=== PATIENT | female | born 1935 | race Caucasian/White ===

== ENCOUNTER → 2017-07-02 | Outpatient (CLI) | payer MEDICARE, BC | LOC: M.RAD 12:25 | DX: M47.896 Other spondylosis, lumbar region (principal); M41.86 Other forms of scoliosis, lumbar region ==

== ENCOUNTER → 2017-09-03 | Outpatient (CLI) | payer MEDICARE, BC | LOC: M.RAD 12:27 | DX: R06.02 Shortness of breath (principal); R07.89 Other chest pain ==

== ENCOUNTER → 2018-03-10 | Outpatient (CLI) | payer MEDICARE, BC | LOC: M.RAD 14:26 | DX: J15.8 Pneumonia due to other specified bacteria (principal); R05 Cough ==

== ENCOUNTER 2018-11-29 17:15 | Inpatient (IN) | payer MEDICARE, BC ==
[~2018-11-29] VITALS: Ht 157.5 cm; Wt 45.7 kg
[2018-11-29 17:21] VITALS: BP 205/78
[2018-11-29] MEDS ORDERED: LEVO-T50 MCG PO (17:37)
[2018-11-29] MEDS ORDERED: LEVO-T75 MCG PO (17:38)
[2018-11-29] MEDS ORDERED: MELOXICAM15 MG PO (17:38)
[2018-11-29 17:39] LABS: ABSOLUTE BASOPHILS 0.1 thou/uL (0.0-0.2); ABSOLUTE LYMPHOCYTES 0.5 thou/uL (0.8-5.3); ABSOLUTE MONOCYTES 0.2 thou/uL (0.0-1.2); ABSOLUTE NEUTROPHILS 3.6 thou/uL (1.6-8.1); BASOPHILS 1.4 %; EOSINOPHILS 0.1 %; HEMATOCRIT 33.9 % (37.0-47.0); HEMOGLOBIN 11.7 gm/dL (12.0-15.0); LYMPHOCYTES 10.3 %; MCH 32.6 pg (26.0-34.0); MCHC 34.5 g/dL (28.0-37.0); MCV 94.3 fL (80.0-100.0); MONOCYTES 5.3 %; MPV 7.4 fl. (7.2-11.1); NUCLEATED RBCS 0 /100WBC; PLATELET COUNT* 186 thou/uL (150-400); POLYS 82.9 %; RDW-CV 12.5 % (10.5-14.5); WBC 4.4 thou/uL (4.0-11.0)
[2018-11-29] MEDS ORDERED: LISINOPRIL20 MG PO (17:39)
[2018-11-29] MEDS ORDERED: VITAMIN D-32000 UNIT PO (17:40)
[2018-11-29] MEDS ORDERED: ZANTAC 150MG T150 M1 PO (17:40)
[2018-11-29] MEDS ORDERED: SLOW FE142 MG PO (17:41)
[2018-11-29] MEDS ORDERED: CLOPIDOGREL75 MG PO (17:42)
[2018-11-29] MEDS ORDERED: NEURONTIN 300M300 M2 PO (17:42)
[2018-11-29] MEDS ORDERED: LOVASTATIN 20 M20 MG PO (17:43)
[2018-11-29] MEDS ORDERED: NEURONTIN 400M400 M2 PO (17:43)
[2018-11-29 17:47] LABS: CALCIUM 10.5 mg/dL (8.5-10.1); CREATININE 1.2 mg/dL (0.6-1.3); POTASSIUM 4.8 mmol/L (3.5-5.1)
[2018-11-29 17:48] LABS: APTT 24.9 Seconds (25.0-31.3)
[2018-11-29 17:58] LABS: ALBUMIN 4.3 g/dL (3.4-5.0); TOTAL BILIRUBIN 0.3 mg/dL (<0.1-1.0); TOTAL PROTEIN 7.7 g/dL (6.4-8.2)
[2018-11-29 18:56] LABS: URINE BILIRUBIN NEGATIVE (Negative); URINE BLOOD TRACE (Negative); URINE CLARITY CLEAR; URINE COLOR STRAW; URINE GLUCOSE-RANDOM NEGATIVE (Negative); URINE KETONES NEGATIVE (Negative); URINE LEUKOCYTES-REFLEX NEGATIVE (Negative); URINE NITRITE-REFLEX NEGATIVE (Negative); URINE PROTEIN 1+ (Negative); URINE UROBILINOGEN 0.2 E.U./dl (0.2-1.0)
[2018-11-29 19:45] VITALS: BP 161/55
[2018-11-29 20:15] VITALS: BP 133/53
[2018-11-30] VITALS (7 sets, daily range): BP systolic 138–187; BP diastolic 45–60
[2018-12-01] VITALS: BP 152/46
[2018-12-01 04:00] VITALS: BP 152/50
[2018-12-01 08:00] VITALS: BP 166/46
--- NOTE | 2018-12-01 11:06 | EKG ---
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: [place] : 1935 Requested By: Roel Rodriguez Order Number: [id number] MD: Justin Owens Measurements Intervals [place] Rate: 74 P: 86 CT: 160 QRS: 8 QRSD: 94 T: 36 QT: 365 QTc: 405 Interpretive Statements Sinus rhythm Probable left atrial enlargement Borderline low voltage, extremity leads Consider anterior infarct No previous ECG available for comparison Electronically Signed On 12-01-2018 11:06:13 CDT by Justin Owens [email or web address] <ELECTRONICALLY SIGNED> By: Justin Owens MD, [facility] 12/01/18 1106 1724 172 Justin Owens MD, [facility] /EPI
[2018-12-01 11:16] LABS: ANION GAP 6 mmol/L (7-16); BUN 19 mg/dL (7-18); CALCIUM 8.8 mg/dL (8.5-10.1); CHLORIDE 104 mmol/L (98-107); CHOLESTEROL 164 mg/dL (<200); CO2 26 mmol/L (21-32); CREATININE 1.1 mg/dL (0.6-1.3); GLUCOSE 127 mg/dL (70-99); HDL CHOLESTEROL 69 mg/dL (>40); LDL CHOLESTEROL 67 mg/dL (<100); MAGNESIUM 1.7 mg/dL (1.8-2.4); SERUM ASSESSMENT Clear; SODIUM 136 mmol/L (136-145); TC:HDL 2.4 Ratio (Not establshd); TRIGLYCERIDE 141 mg/dL (<150); VLDL 28 mg/dL (<40)
[2018-12-01 11:30] VITALS: BP 156/45
--- NOTE | 2018-12-01 14:19 | 2DMMODE ---
[place] [address] 2 D/M-MODE ECHOCARDIOGRAM Name: JALEEL EMERSON Room: [address] IN [facility]#: [id number] Admission: 11/29/18 Attend Phys: Ed Morales Discharge: Date of : 35 Date of Service: 12/01/18 1419 Report #: [id number] THIS REPORT FOR: //name// APPROVED REPORT Study performed: 12/01/2018 11:21:52 EXAM: Comprehensive 2D, Doppler, and color-flow Echocardiogram Patient Location: In-Patient Room #: [facility] BSA: 1.47 HR: 78 bpm BP: 166/46 mmHg Other Information Study Quality: Good Indications R/O Thrombus source 2D Dimensions IVSd: 9.10 (7-11mm) LVOT Diam: 19.42 (18-24mm) LVDd: 36.72 mm PWd: 9.89 (7-11mm) Ascending Ao: 29.13 (22-36mm) LVDs: 22.61 (25-40mm) Aortic Root: 19.93 mm Volumes Left Atrial Volume (Systole) LA ESV Index: 19.60 mL/m2 Aortic Valve AoV Peak Vipul.: 2.48 m/s AO Peak Gr.: 24.50 mmHg LVOT Max P.57 mmHg AO Mean Gr.: 14.00 mmHg LVOT Mean P.52 mmHg LVOT Max V: 1.46 m/s AO V2 VTI: 54.47 cm LVOT Mean V: 0.99 m/s VIANCA (VTI): 1.83 cm2 LVOT V1 VTI: 33.71 cm AI Butts: 3.19 m/s2 AI PHT: 400.17 ms Mitral Valve E/A Ratio: 1.14 MV Decel. Time: 221.70 [place] [address] 2 D/M-MODE ECHOCARDIOGRAM Name: KIJALEEL Room: [address] IN ..#: [id number] Admission: 11/29/18 Attend Phys: Ed Morales Discharge: Date of : 35 Date of Service: 12/01/18 1419 Report #: [id number] MV E Max Vipul.: 0.91 m/s MV PHT: 64.29 ms MVA (PHT): 3.42 cm2 TDI E/Lateral E': 13.00 E/Medial E': 13.00 Medial E' Vipul.: 0.07 m/s Lateral E' Vipul.: 0.07 m/s Pulmonary Valve PV Peak Vipul.: 0.77 m/s PV Peak Gr.: 2.39 mmHg Tricuspid Valve RAP Estimate: 5.00 mmHg TR Peak Gr.: 26.02 mmHg RVSP: 31.02 mmHg PA Pressure: 31.02 mmHg Left Ventricle The left ventricle is normal size. There is normal LV segmental wall motion. There is normal left ventricular wall thickness. Left ventricular systolic function is normal. The left ventricular ejection fraction is within the normal range. LVEF is 60-65%. The left ventricular diastolic function is normal. Right Ventricle The right ventricle is normal size. The right ventricular systolic function is normal. Atria The left atrium size is normal. The right atrium size is normal. Aortic Valve Aortic valve is mildly calcified. Mild aortic regurgitation. Mild aortic stenosis. Mitral Valve The mitral valve is normal in structure. Mild mitral regurgitation. No evidence of mitral valve stenosis. Tricuspid Valve The tricuspid valve is normal in structure. Mild tricuspid regurgitation estimated pa pressure 30 mm Hg Pulmonic Valve Pulmonic valve is not well visualized. There is no [place] [address] 2 D/M-MODE ECHOCARDIOGRAM Name: JALEEL EMERSON Room: [address] IN [facility]#: [id number] Admission: 11/29/18 Attend Phys: Ed Morales Discharge: Date of : 35 Date of Service: 12/01/18 1419 Report #: [id number] regurgitation. Great Vessels The aortic root is normal in size. IVC is normal in size and collapses >50% with inspiration. Pericardium Trace pericardial effusion. <Conclusion> LVEF is 60-65%. Mild aortic stenosis. Mild aortic regurgitation. Mild mitral regurgitation. <ELECTRONICALLY SIGNED> By: Justin Owens MD, FACC 12/01/181418 18 18 Justin Owens MD, FACC /INF
[2018-12-01 16:17] VITALS: BP 152/50
[2018-12-01 20:00] VITALS: BP 182/61
[2018-12-01 23:08] LABS: GLYCOHEMOGLOBIN (HGB A1C) 5.5 % (4.8-5.6)
[2018-12-02] VITALS (9 sets, daily range): BP systolic 130–227; BP diastolic 56–84
[2018-12-03] VITALS (8 sets, daily range): BP systolic 154–227; BP diastolic 58–77
[2018-12-03 05:45] LABS: CALCIUM 9.3 mg/dL (8.5-10.1); CREATININE 1.2 mg/dL (0.6-1.3); MAGNESIUM 2.1 mg/dL (1.8-2.4); POTASSIUM 4.4 mmol/L (3.5-5.1)
[2018-12-04 09:41] VITALS: BP 187/44
[2018-12-04 15:53] VITALS: BP 193/65
[2018-12-05] VITALS: BP 173/59
[2018-12-05 08:56] VITALS: BP 184/64
[2018-12-05] MEDS ORDERED: HYDROCODON-ACE1 EAC7 PO (09:31)
[2018-12-05] MEDS ORDERED: ANECREAM5 GM TOP (09:31)
[2018-12-05] MEDS ORDERED: VALTREX 500 MG500 M1 PO (09:31)
[2018-12-05] MEDS ORDERED: NEURONTIN600 MG PO (09:31)
[2018-12-05] MEDS ORDERED: HYDROCHLOROTHIA25 M1 PO (09:31)
[2018-12-05] MEDS ORDERED: NORVASC5 MG PO (09:31)
[2018-12-05] MEDS ORDERED: CATAPRES0.2 MG PO (09:31)
[2018-12-05 13:05] VITALS: BP 129/87
[2018-12-05 13:10] VITALS: BP 123/52
[2018-12-05 13:15] VITALS: BP 119/53
[2018-12-05 20:00] VITALS: BP 144/51
[2018-12-06 07:45] VITALS: BP 165/53
[2018-12-06 12:25] VITALS: BP 165/53
[2018-12-06 13:28] VITALS: BP 165/53
--- NOTE | 2018-12-09 07:33 | CON ---
[address] [address] CONSULTATION Name: JALEEL EMERSON Room: [address] IN M.R.#: [id number] Admission: 11/29/18 Attend Phys: Meena Swartz Discharge: 12/06/18 Date of : 35 Report #: [id number] THIS REPORT FOR: //name// CC: Erick Morales DATE OF SERVICE: 12/04/2018 INFECTIOUS DISEASE CONSULTATION ATTENDING PHYSICIAN: Dr. Horn. REASON FOR EVALUATION: Varicella zoster scalp distribution on the right. HISTORY OF PRESENT ILLNESS: Chart reviewed, patient examined. This is an 83-year-old woman with history of hypertension, who presented to the Emergency Room with complaints of severe right-sided headaches, seem to radiate down her neck and to shoulder, also had nausea and emesis. She was evaluated including MRI showed no acute intracranial processes. Subsequently, developed a zoster form type eruption, has been quite painful. She states she has macular degeneration, there are no apparent visual changes compared to her baseline. Denies any stiff neck. No fevers have been recorded, was empirically placed on 3 times a day Valtrex. Denies any pulmonary related complaints. ALLERGIES: LISTED TO PENICILLINS CAUSES URTICARIA. CURRENT MEDICATIONS: Include famotidine, hydrocodone, pantoprazole, amlodipine, hydrochlorothiazide, lisinopril, gabapentin, labetalol, valacyclovir 1 g p.o. t.i.d., levothyroxine, atorvastatin, promethazine, ondansetron as needed, p.r.n. analgesics. PAST MEDICAL HISTORY: History of hypertension, subacute thalamic stroke, hypothyroidism. SOCIAL HISTORY: Nonsmoker. No ethanol, no illicit drug use. FAMILY HISTORY: Noncontributory. REVIEW OF SYSTEMS: Otherwise, unremarkable 10-point review of systems with exception noted above. PHYSICAL EXAMINATION: GENERAL: She is alert. She is in vfln-gt-agiflhjm distress. She appears somewhat chronically ill, perhaps mildly undernourished. She is generally lucid. VITAL SIGNS: Temperature 97.7, pulse 60, respirations 18, [place] [address] CONSULTATION Name: JALEEL EMERSON Room: [address]#: [id number] Admission: 11/29/18 Attend Phys: Meena Swartz Discharge: 12/06/18 Date of : 35 Report #: [id number] 187/44. HEENT: She has got some residual superficial ulceration involving the dermatome involving the right side of the scalp, parietal site, appreciate true vesicles at this point, it is somewhat palpably tender. Otherwise normocephalic. Extraocular muscles intact. There is no periorbital inflammation. NECK: Supple. LUNGS: Diminished, otherwise clear breath sounds. HEART: Regular. I do not appreciate any murmur. ABDOMEN: Soft, nontender, nondistended. EXTREMITIES: No cyanosis. GENITOURINARY AND RECTAL: Deferred. LABORATORY DATA: MRI of the head and cervical spine, latter shows multilevel neural foraminal stenosis narrowing at the C3-C4, no acute processes. MRI with an MRA was otherwise unremarkable as well. Electrolytes: Sodium 136, potassium 4.0, chloride 104, bicarbonate 26, anion gap of 6, BUN and creatinine 19 and 1.1. ASSESSMENT AND PLAN: Varicella zoster, at this point seemingly the resolution phase. I think it is reasonable to continue the current approach. I do not see the necessity of a lumbar puncture at this point, does not seem to be direct eye involvement either. Continue symptomatic treatment. It is difficult to ascertain whether she will have some post-herpetic neuralgia, as resolved, may be a candidate for the Shingrix shot. She notes she has had the earlier varicella zoster vaccination, monitor expectantly. We will be available as needed. <ELECTRONICALLY SIGNED> By: Nicko Greer MD 12/09/18 0733 1329 1405Jojaic Greer MD /nt
== END 2018-12-06 13:29 | DRG 74 ==
LOC: M.ERS 17:15 → M.2W 18:24 → M.TBA-ER 18:24 → M.2W 20:00 → M.3W 12-03 15:15
PROVIDERS: Family Medicine; Internal Medicine; ADMIT Internal Medicine
DX: B02.21 Postherpetic geniculate ganglionitis (principal); B01.9 Varicella without complication; E87.1 Hypo-osmolality and hyponatremia; I10 Essential (primary) hypertension; E03.9 Hypothyroidism, unspecified; G90.8 Other disorders of autonomic nervous system; K21.9 Gastro-esophageal reflux disease without esophagitis; G62.9 Polyneuropathy, unspecified; E86.9 Volume depletion, unspecified; Z88.0 Allergy status to penicillin; Z88.8 Allergy status to other drugs, medicaments and biological substances; Z86.73 Personal history of transient ischemic attack (TIA), and cerebral infarction without residual deficits; Z79.899 Other long term (current) drug therapy; Z90.49 Acquired absence of other specified parts of digestive tract; Z98.49 Cataract extraction status, unspecified eye; Z83.3 Family history of diabetes mellitus; Z82.49 Family history of ischemic heart disease and other diseases of the circulatory system

== ENCOUNTER 2019-01-25 15:21 | Inpatient (IN) | payer MEDICARE, BC ==
[~2019-01-25] VITALS: Ht 160 cm; Wt 44.5 kg
--- NOTE | ~2019-01-25 | PROC ---
[address] [address] PROCEDURE REPORT Name: JALEEL EMERSON Room: [address] IN M.R.#: [id number] Admission: 01/25/19 Attend Phys: Justine denise [place] Discharge: Date of : 35 Report #: [id number] THIS REPORT FOR: //name// For GI report, please see the Provation report in Perceptive 7 content. By: 0640Sunil Crowder MD /JOÃO
[~2019-01-25 15:21] MED LIST: ANECREAM5 GM TOP; CATAPRES0.2 MG PO; CLOPIDOGREL75 MG PO; HYDROCHLOROTHIA25 M1 PO; HYDROCODON-ACE1 EAC7 PO; LEVO-T50 MCG PO; LEVO-T75 MCG PO; LISINOPRIL20 MG PO; LOVASTATIN 20 M20 MG PO; MELOXICAM15 MG PO; NEURONTIN 300M300 M2 PO; NEURONTIN 400M400 M2 PO; NEURONTIN600 MG PO; NORVASC5 MG PO; SLOW FE142 MG PO; VALTREX 500 MG500 M1 PO; VITAMIN D-40010 MCG PO; ZANTAC 150MG T150 M1 PO
[2019-01-25 15:37] VITALS: BP 163/52
[2019-01-25 16:05] LABS: ABSOLUTE EOSINOPHILS 0.1 thou/uL (0.0-0.7); ABSOLUTE MONOCYTES 0.5 thou/uL (0.0-1.2); ABSOLUTE NEUTROPHILS 2.6 thou/uL (1.6-8.1); BASOPHILS 1.1 %; EOSINOPHILS 2.3 %; HEMATOCRIT 36.3 % (37.0-47.0); HEMOGLOBIN 12.6 gm/dL (12.0-15.0); LYMPHOCYTES 23.6 %; MCH 33.4 pg (26.0-34.0); MCHC 34.7 g/dL (28.0-37.0); MCV 96.2 fL (80.0-100.0); MONOCYTES 10.9 %; MPV 7.9 fl. (7.2-11.1); NUCLEATED RBCS 0 /100WBC; PLATELET COUNT* 238 thou/uL (150-400); POLYS 62.1 %; RBC 3.78 mil/uL (4.20-5.00); WBC 4.3 thou/uL (4.0-11.0)
[2019-01-25 16:16] LABS: CALCIUM 9.3 mg/dL (8.5-10.1); CREATININE 1.7 mg/dL (0.6-1.3); POTASSIUM 5.5 mmol/L (3.5-5.1)
[2019-01-25 16:20] LABS: ALBUMIN 3.8 g/dL (3.4-5.0); TOTAL BILIRUBIN 0.2 mg/dL (<0.1-1.0); TOTAL PROTEIN 7.3 g/dL (6.4-8.2)
[2019-01-25 17:07] LABS: URINE BILIRUBIN NEGATIVE (Negative); URINE BLOOD NEGATIVE (Negative); URINE CLARITY CLEAR; URINE COLOR YELLOW; URINE GLUCOSE-RANDOM NEGATIVE (Negative); URINE KETONES NEGATIVE (Negative); URINE LEUKOCYTES-REFLEX NEGATIVE (Negative); URINE NITRITE-REFLEX NEGATIVE (Negative); URINE PROTEIN NEGATIVE (Negative); URINE UROBILINOGEN 0.2 E.U./dl (0.2-1.0)
[2019-01-25 17:57] VITALS: BP 157/69
[2019-01-25 18:26] VITALS: BP 157/56
[2019-01-25 20:00] VITALS: BP 141/40
[2019-01-26 09:24] VITALS: BP 132/74
[2019-01-26 09:50] LABS: ABSOLUTE EOSINOPHILS 0.1 thou/uL (0.0-0.7); ABSOLUTE LYMPHOCYTES 1.1 thou/uL (0.8-5.3); ABSOLUTE MONOCYTES 0.4 thou/uL (0.0-1.2); ABSOLUTE NEUTROPHILS 2.3 thou/uL (1.6-8.1); BASOPHILS 1.2 %; EOSINOPHILS 3.5 %; HEMATOCRIT 33.1 % (37.0-47.0); HEMOGLOBIN 11.3 gm/dL (12.0-15.0); LYMPHOCYTES 27.5 %; MCH 33.4 pg (26.0-34.0); MCHC 34.1 g/dL (28.0-37.0); MCV 97.9 fL (80.0-100.0); MONOCYTES 10.7 %; MPV 7.6 fl. (7.2-11.1); NUCLEATED RBCS 0 /100WBC; PLATELET COUNT* 205 thou/uL (150-400); POLYS 57.1 %; RBC 3.38 mil/uL (4.20-5.00); RDW-CV 15.1 % (10.5-14.5)
[2019-01-26 09:55] LABS: CALCIUM 8.5 mg/dL (8.5-10.1); CREATININE 1.2 mg/dL (0.6-1.3); POTASSIUM 5.1 mmol/L (3.5-5.1)
[2019-01-26 11:55] VITALS: BP 132/74
--- NOTE | 2019-01-26 14:28 | EKG ---
[place] [address] ELECTROCARDIOGRAM REPORT Name: JALEEL EMERSON Room: [address] ADM IN .R.#: [id number] Admission: 01/25/19 Attend Phys: Justine Beauchamp Discharge: Date of : 35 Report #: [id number] THIS REPORT FOR: //name// [facility] ED Test Date: 2019-01-25 Test Time: 16:17:23 Pat Name: JALEEL EMERSON Department: Room: [facility] Gender: F Principal Engineer: : 1935 Requested By: Roel Rodriguez Order Number: [id number] MD: Justin Owens Measurements Intervals [place] Rate: 66 P: 85 MO: 167 QRS: 11 QRSD: 101 T: 36 QT: 393 QTc: 412 Interpretive Statements Sinus rhythm poor r wave progression Probable left atrial enlargement Borderline low voltage, extremity leads Compared to ECG 11/29/2018 17:24:08 no change Electronically Signed On 01-26-2019 14:27:54 SUPERVISING EDITOR TRAILER by Justin Owens [email or web address] <ELECTRONICALLY SIGNED> By: Justin Owens MD, [facility] 01/26/19 1427 1617 1617 Justin Owens MD, [facility] /EPI
[2019-01-26 19:45] VITALS: BP 135/36
[2019-01-26 21:35] VITALS: BP 135/36
[2019-01-27 04:52] LABS: CALCIUM 8.3 mg/dL (8.5-10.1); CREATININE 1.1 mg/dL (0.6-1.3); POTASSIUM 5.1 mmol/L (3.5-5.1)
[2019-01-27 05:07] LABS: HEMATOCRIT 32.5 % (37.0-47.0); MCH 33.2 pg (26.0-34.0); MCV 97.7 fL (80.0-100.0); MPV 8.4 fl. (7.2-11.1); RBC 3.33 mil/uL (4.20-5.00); RDW-CV 15.1 % (10.5-14.5)
[2019-01-27 07:11] VITALS: BP 162/40
[2019-01-27 15:57] VITALS: BP 142/45
[2019-01-27 22:00] VITALS: BP 134/27
[2019-01-28 07:40] VITALS: BP 151/43
[2019-01-28 09:18] LABS: ABSOLUTE EOSINOPHILS 0.2 thou/uL (0.0-0.7); ABSOLUTE LYMPHOCYTES 1.1 thou/uL (0.8-5.3); ABSOLUTE MONOCYTES 0.4 thou/uL (0.0-1.2); ABSOLUTE NEUTROPHILS 4.2 thou/uL (1.6-8.1); BASOPHILS 0.5 %; EOSINOPHILS 3.5 %; HEMATOCRIT 39.3 % (37.0-47.0); LYMPHOCYTES 19.1 %; MCH 32.8 pg (26.0-34.0); MCV 96.4 fL (80.0-100.0); MONOCYTES 6.7 %; MPV 7.9 fl. (7.2-11.1); NUCLEATED RBCS 0 /100WBC; PLATELET COUNT* 248 thou/uL (150-400); POLYS 70.2 %; RBC 4.08 mil/uL (4.20-5.00)
[2019-01-28 09:19] LABS: CALCIUM 9.1 mg/dL (8.5-10.1); POTASSIUM 4.7 mmol/L (3.5-5.1)
[2019-01-28 09:21] LABS: HEMOGLOBIN 13.4 gm/dL (12.0-15.0)
[2019-01-28 17:11] VITALS: BP 131/33
[2019-01-28 19:50] VITALS: BP 134/47
[2019-01-29] VITALS (7 sets, daily range): BP systolic 115–144; BP diastolic 36–82
[2019-01-29 04:46] LABS: HEMATOCRIT 32.1 % (37.0-47.0); MCH 32.7 pg (26.0-34.0); MCHC 33.7 g/dL (28.0-37.0); RBC 3.31 mil/uL (4.20-5.00); RDW-CV 15.1 % (10.5-14.5)
[2019-01-29 04:47] LABS: HEMOGLOBIN 10.8 gm/dL (12.0-15.0)
[2019-01-29 05:07] LABS: CALCIUM 8.6 mg/dL (8.5-10.1); MAGNESIUM 1.9 mg/dL (1.8-2.4); POTASSIUM 4.5 mmol/L (3.5-5.1); TOTAL BILIRUBIN 0.2 mg/dL (<0.1-1.0); TOTAL PROTEIN 5.7 g/dL (6.4-8.2)
[2019-01-30 05:13] LABS: HEMATOCRIT 31.2 % (37.0-47.0); HEMOGLOBIN 10.6 gm/dL (12.0-15.0); MCV 96.8 fL (80.0-100.0); MPV 8.1 fl. (7.2-11.1); RBC 3.22 mil/uL (4.20-5.00); WBC 4.2 thou/uL (4.0-11.0)
[2019-01-30 05:24] LABS: ALBUMIN 2.8 g/dL (3.4-5.0); CALCIUM 8.7 mg/dL (8.5-10.1); CREATININE 0.9 mg/dL (0.6-1.3); MAGNESIUM 1.6 mg/dL (1.8-2.4); POTASSIUM 4.6 mmol/L (3.5-5.1); TOTAL BILIRUBIN 0.2 mg/dL (<0.1-1.0); TOTAL PROTEIN 5.4 g/dL (6.4-8.2)
[2019-01-30 08:00] VITALS: BP 160/49
[2019-01-30 16:00] VITALS: BP 140/43
[2019-01-30 20:00] VITALS: BP 151/85
[2019-01-31 10:00] VITALS: BP 147/46
[2019-01-31 15:24] VITALS: BP 128/48
[2019-01-31 21:00] VITALS: BP 131/49
[2019-02-01 04:29] LABS: HEMATOCRIT 31.1 % (37.0-47.0); HEMOGLOBIN 10.5 gm/dL (12.0-15.0); MCH 32.8 pg (26.0-34.0); MCHC 33.8 g/dL (28.0-37.0); MCV 97.1 fL (80.0-100.0); MPV 7.9 fl. (7.2-11.1); RBC 3.21 mil/uL (4.20-5.00); RDW-CV 15.2 % (10.5-14.5); WBC 4.8 thou/uL (4.0-11.0)
[2019-02-01 04:49] LABS: CALCIUM 8.9 mg/dL (8.5-10.1); CREATININE 0.9 mg/dL (0.6-1.3); MAGNESIUM 1.5 mg/dL (1.8-2.4); POTASSIUM 3.9 mmol/L (3.5-5.1); TOTAL BILIRUBIN 0.3 mg/dL (<0.1-1.0); TOTAL PROTEIN 5.6 g/dL (6.4-8.2)
[2019-02-01] MEDS ORDERED: NEURONTIN300 MG PO (06:46)
[2019-02-01 08:30] VITALS: BP 159/46
[2019-02-01 16:00] VITALS: BP 150/50
[2019-02-01 21:00] VITALS: BP 141/38
[2019-02-02 03:51] LABS: HEMATOCRIT 28.8 % (37.0-47.0); HEMOGLOBIN 9.8 gm/dL (12.0-15.0); MCH 32.7 pg (26.0-34.0); MCV 96.1 fL (80.0-100.0); MPV 7.5 fl. (7.2-11.1); RDW-CV 14.8 % (10.5-14.5); WBC 6.7 thou/uL (4.0-11.0)
[2019-02-02 04:21] LABS: ALBUMIN 2.8 g/dL (3.4-5.0); CALCIUM 8.8 mg/dL (8.5-10.1); CREATININE 0.9 mg/dL (0.6-1.3); MAGNESIUM 1.8 mg/dL (1.8-2.4); POTASSIUM 3.8 mmol/L (3.5-5.1); TOTAL BILIRUBIN 0.1 mg/dL (<0.1-1.0); TOTAL PROTEIN 5.3 g/dL (6.4-8.2)
[2019-02-02 08:00] VITALS: BP 164/50
[2019-02-02 16:00] VITALS: BP 178/49
[2019-02-03] VITALS: BP 163/76
[2019-02-03 04:06] LABS: HEMATOCRIT 28.3 % (37.0-47.0); MCH 33.7 pg (26.0-34.0); MCHC 35.2 g/dL (28.0-37.0); MCV 95.8 fL (80.0-100.0); MPV 7.3 fl. (7.2-11.1); RBC 2.95 mil/uL (4.20-5.00); RDW-CV 14.6 % (10.5-14.5); WBC 4.7 thou/uL (4.0-11.0)
[2019-02-03 04:35] LABS: ALBUMIN 2.8 g/dL (3.4-5.0); CALCIUM 8.8 mg/dL (8.5-10.1); CREATININE 0.8 mg/dL (0.6-1.3); MAGNESIUM 1.7 mg/dL (1.8-2.4); POTASSIUM 3.6 mmol/L (3.5-5.1); TOTAL BILIRUBIN 0.2 mg/dL (<0.1-1.0); TOTAL PROTEIN 4.9 g/dL (6.4-8.2)
[2019-02-03 08:00] VITALS: BP 151/51
[2019-02-03 16:00] VITALS: BP 151/59
[2019-02-03 21:39] VITALS: BP 148/39
[2019-02-04 04:44] LABS: CALCIUM 8.4 mg/dL (8.5-10.1); CREATININE 0.8 mg/dL (0.6-1.3); MAGNESIUM 1.7 mg/dL (1.8-2.4); POTASSIUM 3.6 mmol/L (3.5-5.1)
[2019-02-04 08:00] VITALS: BP 163/67
[2019-02-04 10:00] VITALS: BP 163/67
[2019-02-04 13:30] VITALS: BP 156/76
[2019-02-04 17:17] VITALS: BP 132/74
[2019-02-04 17:32] VITALS: BP 146/48
[2019-02-04 20:05] VITALS: BP 146/52
[2019-02-05 05:05] LABS: HEMATOCRIT 28.1 % (37.0-47.0); HEMOGLOBIN 9.8 gm/dL (12.0-15.0); MCH 33.7 pg (26.0-34.0); MCV 96.3 fL (80.0-100.0); RBC 2.92 mil/uL (4.20-5.00); WBC 5.2 thou/uL (4.0-11.0)
[2019-02-05 05:17] LABS: CALCIUM 8.8 mg/dL (8.5-10.1); CREATININE 0.8 mg/dL (0.6-1.3); MAGNESIUM 1.6 mg/dL (1.8-2.4); POTASSIUM 3.9 mmol/L (3.5-5.1)
[2019-02-05 08:16] VITALS: BP 178/67
[2019-02-05 10:55] VITALS: BP 141/56
[2019-02-05] MEDS ORDERED: PRESERVISION A1 EAC2 PO (11:05)
[2019-02-05] MEDS ORDERED: NEURONTIN 400M400 M2 PO (11:21)
[2019-02-05] MEDS ORDERED: LEVO-T50 MCG PO (11:24)
[2019-02-05] MEDS ORDERED: TYLENOL EXTRA500 MG PO (11:29)
[2019-02-05 14:05] VITALS: BP 130/58
--- NOTE | 2019-02-05 14:27 | CON ---
[address] [address] CONSULTATION Name: KIJALEEL Elvira Room: [address] IN M.R.#: [id number] Admission: 01/25/19 Attend Phys: Justine Beauchamp Discharge: Date of : 35 Report #: [id number] THIS REPORT FOR: //name// CC: Erick Hawkins DATE OF SERVICE: 01/31/2019 REASONS FOR CONSULTATION: Nausea, vomiting, and diarrhea. REQUESTING PHYSICIAN: Justine Hawkins MD HISTORY OF PRESENT ILLNESS: This is an 83-year-old female, who resides in a group home community. The patient reports that she started having diarrhea several days ago, which was associated with symptoms of nausea, vomiting, and abdominal cramping. She reports that several of her "residents, they had similar symptoms." She was brought to hospital and was admitted. Since admission, her hemoglobin has dropped from 12 to 10. There is no report of gastrointestinal blood loss. She was also found to have Clostridium difficile for which she is on oral vancomycin. She reports that her nausea has responded to antiemetics and she feels no more nausea but continues to have diarrhea. Today, already she had 3 loose stools. PAST MEDICAL/SURGICAL HISTORY: Significant for history of cerebrovascular accident, hypothyroidism, hypertension, gallbladder disease, status post cholecystectomy, cataract surgery, gastroesophageal reflux disease, neuropathy, right hip fracture, status post repair, laminectomy, and open reduction and internal fixation of left wrist. ALLERGIES: THE PATIENT REPORTS THAT SHE WAS ALLERGIC TO PENICILLIN A CHILD, but does not believe that she has it anymore. MEDICATIONS: Please refer to MAR. SOCIAL HISTORY: The patient lives in group home community. She denies tobacco or alcohol use. She has had history of thalamic cerebrovascular accident. FAMILY HISTORY: Noncontributory. PHYSICAL EXAMINATION: VITAL SIGNS: Blood pressure of 147/46, respirations 20, pulse 63, temperature 98.2. LUNGS: Clear. CARDIOVASCULAR: Regular. ABDOMEN: Soft, nontender, nondistended. [place] [address] CONSULTATION Name: JALEEL EMERSON Room: [address] IN [facility]#: [id number] Admission: 01/25/19 Attend Phys: Justine Beauchamp Discharge: Date of : 35 Report #: [id number] NEUROLOGIC: The patient is alert and oriented x3. LABORATORY DATA: Sodium of 139, potassium 4.6, BUN is 9, creatinine 0.9, glucose 81; liver function tests are all within normal limits; magnesium is low at 1.6, calcium 8.7, lipase is 206, total bilirubin is 0.1; WBC is 4.2, hemoglobin is 10.6 with MCV of 96.8, platelet is 183. As mentioned above, the patient has Clostridium difficile. IMAGING: CT of abdomen and pelvis was obtained on admission. There is no evidence of bowel obstruction. There is some calcified disk protrusion at the level of T12-L1 and L1-L2. There are also some moderate degenerative changes involving the lumbar spine. ASSESSMENT AND PLAN: The patient is with symptoms of nausea, vomiting, and diarrhea, who is Clostridium difficile positive. She is also anemic. She reports that she has had a colonoscopy about 5 years ago when she resided in [place]. We will continue with her Clostridium difficile treatment using vancomycin. If she does not fully respond, we may add Flagyl as well. In reference to her anemia and nausea, we will continue antiemetics as she seems to be responding to that. I will obtain iron and B12 levels. If these were low, we will replace them. If her upper gastrointestinal symptoms persisted in setting of anemia, we may consider upper scope. <ELECTRONICALLY SIGNED> By: Randal Ayoub MD 02/05/19 1427 1237 1305Randal Ayoub MD /nt
[2019-02-05 19:50] VITALS: BP 148/60
[2019-02-06 08:05] VITALS: BP 132/57
[2019-02-06] MEDS ORDERED: FIRVANQ50 MG/1 ML PO (08:39)
[2019-02-06] MEDS ORDERED: PANTOPRAZOLE SO40 M1 PO (08:39)
[2019-02-06] MEDS ORDERED: METAMUCIL PACK3.4 GM PO (08:39)
[2019-02-06] MEDS ORDERED: ACIDOPHILUS1 EAC4 PO (08:39)
[2019-02-06 11:48] VITALS: BP 132/74
[2019-02-06 14:43] VITALS: BP 132/74
--- NOTE | 2019-02-06 15:07 | PATH ---
[address] [address] PATHOLOGY RPT PROCEDURE Name: LAKSHMI EMERSON Room: [address] IN .R.#: [id number] Admission: 01/25/19 Date of : 35 Discharge: 02/06/19 Report #: [id number] Path Case #: [id number] [facility] Accession Number: [id number] . 01 Material submitted: . PART A: duodenum - DUODENAL BIOPSY PART B: stomach - GASTRIC BIOPSIES . 01 Clinical history: . None provided. . 02 Diagnosis: A. Duodenal biopsy: - Moderate active duodenitis with fundic metaplasia, suggesting peptic ulcer disease, negative for granulomas, viral inclusions and dysplasia. . B. Gastric biopsy: - Moderate chronic gastritis, suggesting reactive gastropathy (chemical gastritis), negative for Helicobacter pylori organisms, granulomas and dysplasia. . ([facility]ONINA:mmrosendo; 02/06/2019) [facility] 02/06/2019 1113 Local . 02 Comment: Special stain (B): H. pylori immuno. . (ANTONINA:mml; 02/06/2019) . 02 Electronically signed: . Benson Meredith MD, Pathologist NPI- [id number] . 01 Gross description: . A. Received in formalin labeled "Emerson, Lakshmi, duodenal biopsy" is a 0.8 x 0.5 x 0.1 cm aggregate of dennis-brown mucosa fragments. The specimen is submitted in A1. . B. Received in formalin labeled "Emerson, Lakshmi, gastric biopsy" is a 0.9 x 0.5 x 0.1 cm aggregate of dennis-brown mucosa fragments. The specimen is submitted in B1. ([facility]; 02/05/2019) [facility] 02/05/2019 [facility] Local . 02 Pathologist provided ICD-10: K29.80, K29.50 . 02 CPT . 734973, 246076, U85143 [place] [address] PATHOLOGY RPT PROCEDURE Name: EMERSONLAKSHMI Rosendo Room: [address]#: [id number] Admission: 01/25/19 Date of : 35 Discharge: 02/06/19 Report #: [id number] Path Case #: [id number] Specimen Comment: A courtesy copy of this report has been sent to [phone], [phone] Specimen Comment: [phone], Specimen Comment: Report sent to , and Dr.DE DANIE ZAVALA Performed at: [address], [place], [place] [id number] MD Vince Fiore MD Phone: [phone] Performed at: 02 [facility] [address], [place], [place] [id number] MD Benson Meredith MD Phone: [phone]
== END 2019-02-06 14:40 | DRG 372 ==
LOC: M.ERS 15:21 → M.TBA-ER 16:17 → M.ORTHSURG 16:17 → M.2W 16:17 → M.ORTHSURG 17:56 → M.2W 01-28 13:52 → M.3W 01-29 16:07
PROVIDERS: Family Medicine; Internal Medicine; Internal Medicine Gastroenterology; ADMIT Family Medicine
PROC: 0DB68ZX Excision of Stomach, Via Natural or Artificial Opening Endoscopic, Diagnostic (ICD-10-PCS; principal; 2019-02-04)
PROC: 0DB98ZX Excision of Duodenum, Via Natural or Artificial Opening Endoscopic, Diagnostic (ICD-10-PCS; principal; 2019-02-04)
DX: A04.72 Enterocolitis due to Clostridium difficile, not specified as recurrent (principal); N17.9 Acute kidney failure, unspecified; E87.1 Hypo-osmolality and hyponatremia; N18.4 Chronic kidney disease, stage 4 (severe); K29.70 Gastritis, unspecified, without bleeding; K26.9 Duodenal ulcer, unspecified as acute or chronic, without hemorrhage or perforation; K21.9 Gastro-esophageal reflux disease without esophagitis; G62.9 Polyneuropathy, unspecified; E86.0 Dehydration; E03.9 Hypothyroidism, unspecified; E87.5 Hyperkalemia; K21.0 Gastro-esophageal reflux disease with esophagitis; E86.9 Volume depletion, unspecified; I12.9 Hypertensive chronic kidney disease with stage 1 through stage 4 chronic kidney disease, or unspecified chronic kidney disease; K44.9 Diaphragmatic hernia without obstruction or gangrene; Z90.49 Acquired absence of other specified parts of digestive tract; Z87.81 Personal history of (healed) traumatic fracture; Z88.0 Allergy status to penicillin; Z86.73 Personal history of transient ischemic attack (TIA), and cerebral infarction without residual deficits; Z82.49 Family history of ischemic heart disease and other diseases of the circulatory system; Z83.3 Family history of diabetes mellitus

== ENCOUNTER → 2019-04-23 | Outpatient (CLI) | payer MEDICARE, BC ==
[~2019-04-23] MED LIST changes: +ACIDOPHILUS1 EAC4 PO; +FIRVANQ50 MG/1 ML PO; +METAMUCIL PACK3.4 GM PO; +NEURONTIN300 MG PO; +PANTOPRAZOLE SO40 M1 PO; +PRESERVISION A1 EAC2 PO; +TYLENOL EXTRA500 MG PO
== END ==
LOC: M.RAD 11:47
DX: S22.42XA Multiple fractures of ribs, left side, initial encounter for closed fracture (principal); M25.552 Pain in left hip; X58.XXXA Exposure to other specified factors, initial encounter; Y92.89 Other specified places as the place of occurrence of the external cause; Y93.89 Activity, other specified; Y99.8 Other external cause status

== ENCOUNTER 2019-04-26 17:19 | Inpatient (IN) | payer MEDICARE, BC ==
[~2019-04-26] VITALS: Ht 160 cm; Wt 44.0 kg
[2019-04-26 17:19] VITALS: BP 176/58
[2019-04-26] MEDS ORDERED: WAL-ZAN 7575 MG PO (17:27)
[2019-04-26 17:58] LABS: ABSOLUTE LYMPHOCYTES 0.6 thou/uL (0.8-5.3); ABSOLUTE MONOCYTES 0.4 thou/uL (0.0-1.2); BASOPHILS 0.6 %; EOSINOPHILS 0.8 %; HEMATOCRIT 30.7 % (37.0-47.0); HEMOGLOBIN 10.7 gm/dL (12.0-15.0); LYMPHOCYTES 14.4 %; MCH 33.1 pg (26.0-34.0); MCHC 34.9 g/dL (28.0-37.0); MCV 94.7 fL (80.0-100.0); MONOCYTES 10.9 %; MPV 7.5 fl. (7.2-11.1); NUCLEATED RBCS 0 /100WBC; PLATELET COUNT* 219 thou/uL (150-400); POLYS 73.3 %; RBC 3.24 mil/uL (4.20-5.00); RDW-CV 12.7 % (10.5-14.5); WBC 4.1 thou/uL (4.0-11.0)
[2019-04-26 18:06] LABS: CALCIUM 9.3 mg/dL (8.5-10.1); CREATININE 0.9 mg/dL (0.6-1.3); POTASSIUM 5.2 mmol/L (3.5-5.1)
[2019-04-26 18:10] LABS: ALBUMIN 3.8 g/dL (3.4-5.0); TOTAL BILIRUBIN 0.4 mg/dL (<0.1-1.0); TOTAL PROTEIN 6.9 g/dL (6.4-8.2)
[2019-04-26 18:11] LABS: URINE BILIRUBIN NEGATIVE (Negative); URINE BLOOD NEGATIVE (Negative); URINE CLARITY CLEAR; URINE COLOR YELLOW; URINE GLUCOSE-RANDOM NEGATIVE (Negative); URINE KETONES NEGATIVE (Negative); URINE LEUKOCYTES-REFLEX NEGATIVE (Negative); URINE NITRITE-REFLEX NEGATIVE (Negative); URINE PROTEIN 2+ (Negative); URINE UROBILINOGEN 0.2 E.U./dl (0.2-1.0)
[2019-04-26 18:16] LABS: SQUAMOUS 0-3 Few /LPF (0-3)
[2019-04-26 18:21] LABS: CASTS None Seen /LPF (None Seen); MUCUS None Seen strn/LPF (None Seen); URINE RBC 0-2 Rare /HPF (0-2); URINE WBC-REFLEX 0-5 Rare /HPF (0-5)
[2019-04-26 18:22] LABS: CRYSTALS None Seen /LPF (None Seen)
[2019-04-26 20:23] VITALS: BP 164/89
[2019-04-26 20:30] VITALS: BP 146/50
[2019-04-26] MEDS ORDERED: ULTRAM50 MG PO (22:43)
[2019-04-27 00:34] VITALS: BP 145/54
[2019-04-27 04:23] VITALS: BP 165/50
--- NOTE | 2019-04-27 04:55 | NUR ---
PT RECIEVED FROM ED IN ROOM 219. ALERT AND ORIENTED X4. DENIES NAUSEA. C/O PAIN, MEDICATION GIVEN PER EMAR. CALL LIGHT WITHIN REACH AND BED IN LOW POSITION. HOURLY ROUNDING DONE FOR PT SAFETY.
[2019-04-27 08:00] VITALS: BP 185/59
[2019-04-27 12:12] VITALS: BP 174/60
--- NOTE | 2019-04-27 12:27 | NUR ---
Pt is A&O. Resides at home alone. Independent with ADLS, Pt states that her granddtr provides her cooking, cleaning and transportation. Pt uses a RW for mobility. No home o2. Hx of [facility]. Hx of SNF at [place]. Goal is home at pr, no needs anticipated.
--- NOTE | 2019-04-27 12:34 | NUR ---
SPOKE WITH MED STUDENT AND PHYSICIAN THIS MORNING REGARDING PT HIGH BLOOD PRESSURE AND HOME MEDS NOT YET BEING CONTINUED
[2019-04-27 16:20] VITALS: BP 140/53
--- NOTE | 2019-04-27 16:27 | EKG ---
[place] [address] ELECTROCARDIOGRAM REPORT Name: JALEEL MEERSON Room: [address] ADM IN .R.#: [id number] Admission: 04/26/19 Attend Phys: Gabbi Hernandez Discharge: Date of : 35 Date of Service: 04/26/19 1749 Report #: [id number] THIS REPORT FOR: //name// [facility] ED Test Date: 2019-04-26 Test Time: 17:49:48 Pat Name: JALEEL EMERSON Department: Room: [facility] Gender: F Academic Affairs Specialist: MS : 1935 Requested By: Gregory Ferrer Order Number: [id number] MD: Sunil Jones Measurements Intervals [place] Rate: 69 P: 75 VA: 156 QRS: -13 QRSD: 80 T: 26 QT: 373 QTc: 400 Interpretive Statements Sinus rhythm Compared to ECG 01/25/2019 16:17:23 Delayed R-wave progression Myocardial infarct finding now present No significant changes noted Electronically Signed On 04-27-2019 16:26:25 CDT by Sunil Jones [email or web address] <ELECTRONICALLY SIGNED> By: Sunil Jones MD, FACC 04/27/19 1626 1749 1749 Sunil Jones MD, [facility] /EPI
--- NOTE | 2019-04-27 17:39 | NUR ---
PT HAS HAD NO BOWEL MOVEMENTS TODAY, UP TO COMMODE TO VOID MULTIPLE TIMES. PT HAS HAD NO NAUSEA OR VOMITING.
[2019-04-27 19:50] VITALS: BP 164/64
[2019-04-28] VITALS: BP 159/62
[2019-04-28 03:50] VITALS: BP 164/56
[2019-04-28 04:37] LABS: ABSOLUTE BASOPHILS 0.1 thou/uL (0.0-0.2); ABSOLUTE EOSINOPHILS 0.1 thou/uL (0.0-0.7); ABSOLUTE LYMPHOCYTES 0.9 thou/uL (0.8-5.3); ABSOLUTE MONOCYTES 0.5 thou/uL (0.0-1.2); ABSOLUTE NEUTROPHILS 2.4 thou/uL (1.6-8.1); BASOPHILS 1.4 %; EOSINOPHILS 3.6 %; HEMATOCRIT 32.8 % (37.0-47.0); HEMOGLOBIN 11.5 gm/dL (12.0-15.0); LYMPHOCYTES 23.3 %; MCHC 35.3 g/dL (28.0-37.0); MCV 93.7 fL (80.0-100.0); MONOCYTES 13.5 %; MPV 7.3 fl. (7.2-11.1); NUCLEATED RBCS 0 /100WBC; PLATELET COUNT* 240 thou/uL (150-400); POLYS 58.2 %; RDW-CV 12.8 % (10.5-14.5); WBC 4.1 thou/uL (4.0-11.0)
[2019-04-28 04:48] LABS: ALBUMIN 3.6 g/dL (3.4-5.0); CALCIUM 9.2 mg/dL (8.5-10.1); CREATININE 0.8 mg/dL (0.6-1.3); POTASSIUM 4.6 mmol/L (3.5-5.1); TOTAL BILIRUBIN 0.4 mg/dL (<0.1-1.0); TOTAL PROTEIN 6.8 g/dL (6.4-8.2)
[2019-04-28 08:00] VITALS: BP 172/59
--- NOTE | 2019-04-28 08:20 | NUR ---
PT CARE ASSUMED AT 1930. SAT MAINTAINED IN RA. ALERT AND ORIENTED X4 BUT FORGETFUL. C/O PAIN, MEDICATION GIVEN PER EMAR. CALL LIGHT WITHIN REACH AND BED IN LOW POSITION. HOURLY ROUNDING DONE FOR PT SAFETY.
--- NOTE | 2019-04-28 12:00 | NUR ---
Nutrition: Pt admitted with gastroenteritis. No BM yet. Regular diet. Albumin 3.6. Consult received for wt change. Per [employer], pt weighs 100-110# usually. Current wt 109# - no wt change noted. GOALS: good po intake, +BM. RD available. Mild risk at this time.
[2019-04-28 12:44] VITALS: BP 162/54
[2019-04-28 16:49] VITALS: BP 111/54
--- NOTE | 2019-04-28 18:30 | NUR ---
ASSUMED PT CARE AT 0700, PT A&O X4, VSS, RA, LS CTA, BS HYPOACTIVE THROUGHOUT, PT C/O PAIN IN LEFT UPPER AND LOWER QUAD AND STATES NO BM X 2-3 DAYS. PHYSICIAN NOTIFIED, NEW ORDERS RECVD. PT REMAINS ON FLUID RESTRICTION OF 1500ML, TOLERATING WELL, HOURLY ROUNDING COMPLETED.
[2019-04-28 19:50] VITALS: BP 155/55
[2019-04-29] VITALS (7 sets, daily range): BP systolic 134–180; BP diastolic 44–57
[2019-04-29 05:27] LABS: ABSOLUTE BASOPHILS 0.1 thou/uL (0.0-0.2); ABSOLUTE EOSINOPHILS 0.2 thou/uL (0.0-0.7); ABSOLUTE LYMPHOCYTES 0.9 thou/uL (0.8-5.3); ABSOLUTE MONOCYTES 0.6 thou/uL (0.0-1.2); ABSOLUTE NEUTROPHILS 2.3 thou/uL (1.6-8.1); BASOPHILS 2.1 %; EOSINOPHILS 4.4 %; HEMOGLOBIN 10.9 gm/dL (12.0-15.0); LYMPHOCYTES 22.4 %; MCHC 35.3 g/dL (28.0-37.0); MCV 93.4 fL (80.0-100.0); MONOCYTES 14.9 %; MPV 7.5 fl. (7.2-11.1); NUCLEATED RBCS 0 /100WBC; PLATELET COUNT* 247 thou/uL (150-400); POLYS 56.2 %; RBC 3.32 mil/uL (4.20-5.00); RDW-CV 12.8 % (10.5-14.5); WBC 4.1 thou/uL (4.0-11.0)
[2019-04-29 05:39] LABS: ALBUMIN 3.3 g/dL (3.4-5.0); CALCIUM 8.7 mg/dL (8.5-10.1); CREATININE 0.9 mg/dL (0.6-1.3); POTASSIUM 4.7 mmol/L (3.5-5.1); TOTAL BILIRUBIN 0.4 mg/dL (<0.1-1.0); TOTAL PROTEIN 6.1 g/dL (6.4-8.2)
--- NOTE | 2019-04-29 08:29 | NUR ---
PT CARE ASSUMED AT 1930. SAT MAINTAINED IN RA. ALERT AND ORIENTED X4 BUT FORGETFUL. C/O PAIN THIS AM ON LFT LOWER QUADRANT, MEDICTAION GIVEN PER EMAR. CALL LIGHT WITHIN REACH AND BED IN LOW POSITION. HOURLY ROUNDING DONE FOR PT SAFETY.
--- NOTE | 2019-04-29 14:56 | NUR ---
Pt sound asleep, CM to discuss dispo with Pt, Pt will likely need skilled.
--- NOTE | 2019-04-29 17:04 | NUR ---
ASSUMED PT CARE AT 0700, PT A&O X4, VSS, RA, LS CTA, BS REMAIN HYPO-ACTICE X 4 QUADS, REFUSES TO EAT MOST MEALS STATING SHE IS "NOT HUNGRY". EDUCATED ON IMPORTANCE OF EATING MEALS, ENCOURAGED FLUIDS PT IS NOT COMING CLOSE TO FLUID RESTRICTION. PT/OT ON BOARD, PT TOLERATING WELL, SON DID VOICE CONCERNS ON PT DISCHARGING HOME SHE LIVES ALONE, HE IS REQUESTING REHAB IF POSSIBLE. PT DISCHARGED FROM TELEMETRY STATUS AND NOW MED SURG STATUS, HOURLY ROUNDING COMPLETED.
[2019-04-30 00:01] VITALS: BP 154/46
[2019-04-30 01:10] LABS: URINE BILIRUBIN NEGATIVE (Negative); URINE BLOOD NEGATIVE (Negative); URINE CLARITY CLEAR; URINE COLOR STRAW; URINE GLUCOSE-RANDOM NEGATIVE (Negative); URINE KETONES NEGATIVE (Negative); URINE LEUKOCYTES-REFLEX NEGATIVE (Negative); URINE NITRITE-REFLEX NEGATIVE (Negative); URINE PROTEIN NEGATIVE (Negative); URINE UROBILINOGEN 0.2 E.U./dl (0.2-1.0)
[2019-04-30 04:18] VITALS: BP 140/39
[2019-04-30 05:19] LABS: ABSOLUTE BASOPHILS 0.1 thou/uL (0.0-0.2); ABSOLUTE EOSINOPHILS 0.2 thou/uL (0.0-0.7); ABSOLUTE LYMPHOCYTES 0.9 thou/uL (0.8-5.3); ABSOLUTE MONOCYTES 0.7 thou/uL (0.0-1.2); ABSOLUTE NEUTROPHILS 1.9 thou/uL (1.6-8.1); EOSINOPHILS 6.2 %; HEMATOCRIT 30.1 % (37.0-47.0); HEMOGLOBIN 10.4 gm/dL (12.0-15.0); LYMPHOCYTES 23.3 %; MCH 32.5 pg (26.0-34.0); MCHC 34.6 g/dL (28.0-37.0); MONOCYTES 18.8 %; MPV 7.3 fl. (7.2-11.1); NUCLEATED RBCS 0 /100WBC; PLATELET COUNT* 240 thou/uL (150-400); POLYS 49.7 %; RDW-CV 13.1 % (10.5-14.5); WBC 3.7 thou/uL (4.0-11.0)
[2019-04-30 05:41] LABS: ALBUMIN 3.2 g/dL (3.4-5.0); CALCIUM 8.9 mg/dL (8.5-10.1); CREATININE 0.9 mg/dL (0.6-1.3); POTASSIUM 4.8 mmol/L (3.5-5.1); TOTAL BILIRUBIN 0.4 mg/dL (<0.1-1.0); TOTAL PROTEIN 5.9 g/dL (6.4-8.2)
--- NOTE | 2019-04-30 07:44 | NUR ---
ASSUMED CARE OF PT AFTER REPORT AT 1930. PT A&OX4. VSS. PHYSICAL ASSESSMENT COMPLETED AND CHARTED. PT ON RA. PT ON MEDSURG STATUS. PT UP WITH 1 ASSIST TO BSC. PT COMPLAINED OF BACK PAIN-MEDS GIVEN PER APR. MAINTAINED ON SPECIAL CONTACT PRECAUTION FOR HX OF CDIFF. PT ABLE TO SLEEP WELL ON BED. FALL PRECAUTIONS IN PLACE. CALL LIGHT WITHIN REACH.
[2019-04-30 08:00] VITALS: BP 189/62
[2019-04-30 11:42] VITALS: BP 155/39
--- NOTE | 2019-04-30 12:00 | NUR ---
CM spoke with Pt regarding SNF, hopes to be able to return home, but if not wants to dc to [facility] SNF, referral faxed.
[2019-04-30 18:23] VITALS: BP 162/64
--- NOTE | 2019-04-30 19:15 | NUR ---
RECEIVED REPORT FROM JAY CHERRY. ASSUMED CARE OF PT AROUND 0730. PT A&OX4. M/S STATUS. AM ASSESSMENT AND VITALS COMPLETED CHARTED. MEDS PER EMAR. PT REPORTED LEFT SIDE PAIN THAT WAS TREATED WITH PO PAIN MEDICATION WITH PARTIAL RELIEF. PT HAD 2 SMALL FORMED BM'S THIS SHIFT - DESPITE REFUSING LAXATIVE THAT WAS ORDERED. FAMILY VISITED THIS AFTERNOON. ISOLATION FOR POTENTIAL CDIFF MAINTAINED. PT TO TRANSFER TO J&S ROOM 108 - REPORT CALLED TO LYNETTE CHERRY DURING SHIFT CHANGE. PT TO GO DOWNSTAIRS VIA WC WITH NURSING STAFF. PT CURRENTLY RESTING IN BED. CALL LIGHT IS WITHIN REACH. HOURLY ROUNDIGN PERFORMED. FALL PRECAUTIONS IN PLACE.
[2019-04-30 21:50] VITALS: BP 155/46
--- NOTE | 2019-05-01 06:25 | NUR ---
PT A&O X 4. MEDS GIVEN ORDERED. PAIN MANAGED WITH NORCO, PARTIALLY RELIEVED. NO N/V THIS SHIFT. UP WITH 1 TO BSC. ISOLATION MAINTAINED FOR HX OF CDIFF. HOURLY ROUNDINGS COMPLETED. WILL CONTINUE TO MONITOR.
[2019-05-01 08:06] VITALS: BP 173/65
--- NOTE | 2019-05-01 08:27 | NUR ---
[facility] unsure if they will have bed availability, CM to check for bed availability for tomorrow, plan dc tomorrow. If no bed available, CM to determine alternate skilled option
--- NOTE | 2019-05-01 11:47 | NUR ---
CONFIRMED WITH [facility] THAT THEY WILL NOT HAVE ANY BEDS AVAILABLE TODAY OR TOMORROW, 05/02/19. NOTIFIED DISEASE CASE MANAGER.
[2019-05-01 12:17] LABS: HEMATOCRIT 31.2 % (37.0-47.0); HEMOGLOBIN 10.7 gm/dL (12.0-15.0); MCH 32.6 pg (26.0-34.0); MCHC 34.4 g/dL (28.0-37.0); MPV 7.2 fl. (7.2-11.1); RBC 3.28 mil/uL (4.20-5.00); RDW-CV 12.7 % (10.5-14.5); WBC 4.4 thou/uL (4.0-11.0)
[2019-05-01 12:25] LABS: CALCIUM 9.1 mg/dL (8.5-10.1); CREATININE 0.9 mg/dL (0.6-1.3); POTASSIUM 4.3 mmol/L (3.5-5.1)
--- NOTE | 2019-05-01 13:17 | NUR ---
NOTIFIED [facility]ERSON ([facility]) [phone] THAT PATIENT WOULD PROBABLY BE DISCHARGED TOMORROW, 05/02/19 AND THAT [facility] DID NOT HAVE ANY AVAILABLE BEDS. PATIENT WAS PREVIOUSLY AT [facility] AND HAD A GOOD EXPERIENCE. TALKED TO CORTNEY/KARLOS AT [facility] AND FAXED REFERRAL. DCP TO FOLLOW. [facility] [phone]; [phone]
--- NOTE | 2019-05-01 15:30 | NUR ---
CONFIRMED WITH [facility] THAT THEY WILL HAVE A BED AVAILABLE TOMORROW AT DISCHARGE, 05/02/19. PLEASE CONTACT CORTNEY/JAVIERISON AT [facility] ON SATURDAY TO DISCUSS TIME OF DISCHARGE AND TRANSPORTATION ARRANGEMENTS. DCP TO CONTACT NURSING UNIT, PATIENT AND [facility] ([facility]). WILL REQUEST CHART COPY. [facility] [phone]; FAX [phone]; CORTNEY/ROMEL [phone]
--- NOTE | 2019-05-01 15:52 | NUR ---
PT A&Ox4. VITALS STABLE. IV PATENT, SL. TOLERATING DIET. PAIN PARTIALLY CONTROLLED WITH NORCO. DENIED N/V. UP WITH 1 USING WALKER. WILL GO TO SKILLED UPON DISCHARGE. FALL PRECAUTIONS IN PLACE. CALL LIGHT WITHIN REACH. WILL CONTINUE TO MONITOR.
[2019-05-01 16:00] VITALS: BP 171/59
--- NOTE | 2019-05-01 17:05 | NUR ---
PT HAD INITIALLY INFOMRMED EWA FROM [facility] SHE DIDNT WANT TO GO THERE. EWA NOTIFED THIS CM. CM F/U W/PT RE HER DECISION NOT TO GO TO [facility] AND PT SAID SHE HAD TO THINK ABOUT IT. AFTERWARDS, PT INFORMED CM SHE WAS WILLING TO GO [facility] HER ROOM WASNT HAD THE END OF THE [place] AND SHE WANTED HER EVENINGS MEDS ADMINISTERED AT 2100. SHILANA AGREED. STATED PT ROOM WAS CLOSE TO THE FRONT OF THE HALLWAY. CM NOTIFED PT'S SON LONG, PT AGREED TO [facility]. POSSIBLE D/C TOMORROW. EWA STATED [facility] WILL PROVIDE TRANSPORTATION. LONG INFORMED BY CM HER WOULD NOT BE ABLE TO VISIT PT D/T LOCK DOWN RESTRICTIONS, PER EWA. LONG ASKED CM TO CALL HIM FROM PT ROOM. PT STATED SHE DID NOT WANT TO SPK TO HER SON. CM NOTIFIED LONG PT STATED SHE DID NOT WANT CM TO CALL HIM. HE STATED THAT PT "DOESNT WANT TO BE HERE ANYMORE." LONG STATED PT'S PCP TOLD FAMILY, HIM AND 2 CHILDREN TO ACCEPT THIS. CM EDU LONG ON HOSPICE IF PT IS NOT INTERESTED IN SEEKING AGGRESSIVE TX, PT WAS SOBBING B/C SHE STATES, "I WANT TO GO HOME." LONG EXPRESSED APPRECIATION FOR EDU AND STATED HE WOULD THINK ABOUT IT. CM TO CONT TO FOLLOW.
--- NOTE | 2019-05-01 17:36 | NUR ---
CALL CORTNEY/ROMEL AT [facility] WHEN PHYSICIAN DISCHARGES PATIENT ON 05/02/19. SHE WILL MAKE TRANSPORTATION ARRANGEMENTS. FAX DISCHARGE ORDERS AND SUMMARY TO [facility]. EL[place]ORN [place] [phone] MICHAEL [phone] FAX [phone]
[2019-05-01 20:02] VITALS: BP 161/51
[2019-05-02 04:26] LABS: HEMATOCRIT 34.2 % (37.0-47.0); HEMOGLOBIN 11.8 gm/dL (12.0-15.0); MCH 32.6 pg (26.0-34.0); MCHC 34.4 g/dL (28.0-37.0); MCV 94.6 fL (80.0-100.0); MPV 7.4 fl. (7.2-11.1); RBC 3.61 mil/uL (4.20-5.00); RDW-CV 13.1 % (10.5-14.5); WBC 5.3 thou/uL (4.0-11.0)
[2019-05-02 04:54] LABS: CALCIUM 9.4 mg/dL (8.5-10.1); CREATININE 1.1 mg/dL (0.6-1.3); MAGNESIUM 2.1 mg/dL (1.8-2.4); POTASSIUM 4.6 mmol/L (3.5-5.1)
--- NOTE | 2019-05-02 06:08 | NUR ---
PATIENT STILL ON ISO FOR HX OF CDIFF. NO S/S OF IT NOW. SHE DID GET A DOSE OF 1 NORCO AT 1930. SODIUM CURRENTLY 129. STILL ON 1500 ML FLUID RESTRICTION AND COMPLIANT. PAIN SEEMS TO BE WELL MANAGED. SHE IS UP WITH ASSISTANCE X 1 WITH WALKER TO BEDSIDE COMMODE. PLAN IS TO D/C TO [facility] POSSIBLY SATURDAY. WILL CONTINUE TO FOLLOW PLAN OF CARE.
[2019-05-02 09:53] VITALS: BP 152/74
[2019-05-02 16:00] VITALS: BP 173/54
--- NOTE | 2019-05-02 18:56 | NUR ---
ASSUMED CARE OF PATIENT AT APPROX 0730. ALERT AND ORIENTED X4. ASSESSMENT COMPLETED AND CHARTED. VSS ON ROOM AIR. MINIMAL COMPLAINTS OF PAIN THIS SHIFT. FLUIDS STARTED AND INFUSING ORDERED. PATIENT UP WITH WALKER USING BEDSIDE COMMODE. NO OTHER COMPLAINTS THIS SHIFT. FALL PRECAUTIONS IN PLACE. CALL LIGHT WITHIN REACH. HOURLY ROUNDS COMPLETED. WILL CONTINUE WITH PLAN OF CARE.
[2019-05-02 20:51] VITALS: BP 123/33
[2019-05-03 00:42] VITALS: BP 175/65
[2019-05-03 03:45] LABS: HEMATOCRIT 30.1 % (37.0-47.0); HEMOGLOBIN 10.6 gm/dL (12.0-15.0); MCH 33.4 pg (26.0-34.0); MCHC 35.1 g/dL (28.0-37.0); MCV 95.2 fL (80.0-100.0); RBC 3.16 mil/uL (4.20-5.00); WBC 4.7 thou/uL (4.0-11.0)
[2019-05-03 03:53] LABS: CALCIUM 8.9 mg/dL (8.5-10.1); CREATININE 0.9 mg/dL (0.6-1.3); MAGNESIUM 1.9 mg/dL (1.8-2.4); POTASSIUM 4.4 mmol/L (3.5-5.1)
--- NOTE | 2019-05-03 05:34 | NUR ---
PATIENT RESTED WELL THROUGH NIGHT. IS STILL UP WITH ASSIST X1 TO BEDSIDE COMMODE WITH WALKER. SHE DID REPORT SOME LEFT SIDE PAIN AT 0045 GAVE TRAMADOL FOR. SHE HAS HAD NS RUNNING ALL SHIFT. TOOK ALL MEDS SCHEDULED. SODIUM NOW 131. WILL CONTINUE TO MONITOR.
[2019-05-03 09:00] VITALS: BP 140/58
[2019-05-03] MEDS ORDERED: LIDOPATCH1 EACH TOP (10:00)
[2019-05-03] MEDS ORDERED: HYDROCODON-ACE1 EAC7 PO (10:00)
[2019-05-03] MEDS ORDERED: LISINOPRIL20 MG PO (10:00)
[2019-05-03] MEDS ORDERED: ULTRAM50 MG PO (10:00)
[2019-05-03] MEDS ORDERED: MIRALAX17 GM PO (10:00)
[2019-05-03 11:08] VITALS: BP 140/58
--- NOTE | 2019-05-03 13:09 | NUR ---
ASSUMED CAER OF PATIENT AT APPROX 0730. ALERT AND ORIENTED X4. ASSESSMENT COMPLETED AND CHARTED. VSS ON ROOM AIR. COMPLAINT OF PAIN MANAGED WITH ORAL NORCO. PATIENT UP WITH WALKER TO USE BEDSIDE COMMODE. FLUIDS STOPPED ORDERED AND MALACHI REMOVED. PATIENT DRESSED AND DISCHARGED AT 1300 WITH ALL PERSONAL BELONGINGS, PRESCRIPTIONS AND DISCARGE PACKET. TRANSPORTED TO [facility] VIA WHEELCHAIR VAN.
== END 2019-05-03 13:00 | DRG 690 ==
LOC: M.ERS 17:19 → M.2W 18:46 → M.TBA-ER 18:46 → M.2W 22:18 → M.ORTHSURG 04-30 21:00
PROVIDERS: Emergency Medicine Emergency Medical Services; Internal Medicine; ADMIT Internal Medicine
DX: N39.0 Urinary tract infection, site not specified (principal); E87.1 Hypo-osmolality and hyponatremia; Z68.1 Body mass index [BMI] 19.9 or less, adult; E44.1 Mild protein-calorie malnutrition; A08.4 Viral intestinal infection, unspecified; E86.0 Dehydration; Z60.2 Problems related to living alone; K21.9 Gastro-esophageal reflux disease without esophagitis; I10 Essential (primary) hypertension; E03.9 Hypothyroidism, unspecified; R07.81 Pleurodynia; H04.123 Dry eye syndrome of bilateral lacrimal glands; K59.00 Constipation, unspecified; G62.9 Polyneuropathy, unspecified; Z79.899 Other long term (current) drug therapy; Z88.0 Allergy status to penicillin; Z83.3 Family history of diabetes mellitus; Z82.49 Family history of ischemic heart disease and other diseases of the circulatory system; Z98.49 Cataract extraction status, unspecified eye; Z90.49 Acquired absence of other specified parts of digestive tract

== ENCOUNTER 2020-07-25 15:38 | Emergency (ER) | payer MEDICARE, BC ==
[~2020-07-25] VITALS: Ht 160 cm; Wt 45.4 kg
[~2020-07-25 15:38] MED LIST changes: +LIDOPATCH1 EACH TOP; +MIRALAX17 GM PO; +ULTRAM50 MG PO; +WAL-ZAN 7575 MG PO
[2020-07-25] MEDS ORDERED: FAMOTIDINE 20 M20 MG PO (15:47)
[2020-07-25] MEDS ORDERED: COLACE100 MG PO (15:47)
[2020-07-25] MEDS ORDERED: IRON325 M1 PO (15:48)
[2020-07-25] MEDS ORDERED: LASIX 20 MG TAB20 MG PO (15:49)
[2020-07-25 16:11] LABS: URINE BILIRUBIN NEGATIVE (Negative); URINE BLOOD 2+ (Negative); URINE COLOR YELLOW; URINE GLUCOSE-RANDOM NEGATIVE (Negative); URINE KETONES NEGATIVE (Negative); URINE LEUKOCYTES TRACE (Negative); URINE NITRITE POSITIVE (Negative); URINE PROTEIN 2+ (Negative); URINE UROBILINOGEN 0.2 E.U./dl (0.2-1.0)
[2020-07-25 16:16] LABS: URINE CLARITY CLOUDY
[2020-07-25] MEDS ORDERED: METOPROLOL SUC100 MG PO (16:17)
[2020-07-25 16:19] LABS: ABSOLUTE BASOPHILS 0.1 thou/uL (0.0-0.2); ABSOLUTE EOSINOPHILS 0.1 thou/uL (0.0-0.7); ABSOLUTE LYMPHOCYTES 0.8 thou/uL (0.8-5.3); ABSOLUTE MONOCYTES 0.8 thou/uL (0.0-1.2); ABSOLUTE NEUTROPHILS 9.4 thou/uL (1.6-8.1); BASOPHILS 0.6 %; EOSINOPHILS 0.6 %; HEMATOCRIT 32.8 % (37.0-47.0); HEMOGLOBIN 11.3 gm/dL (12.0-15.0); LYMPHOCYTES 7.1 %; MCH 32.6 pg (26.0-34.0); MCHC 34.5 g/dL (28.0-37.0); MCV 94.4 fL (80.0-100.0); MONOCYTES 6.9 %; NUCLEATED RBCS 0 /100WBC; PLATELET COUNT* 180 thou/uL (150-400); POLYS 84.8 %; RBC 3.47 mil/uL (4.20-5.00)
[2020-07-25 16:27] LABS: CALCIUM 9.5 mg/dL (8.5-10.1); CREATININE 1.3 mg/dL (0.6-1.3); POTASSIUM 4.1 mmol/L (3.5-5.1)
[2020-07-25 16:31] LABS: BACTERIA >30 Many /HPF (None Seen); CASTS None Seen /LPF (None Seen); CRYSTALS None Seen /LPF (None Seen); SQUAMOUS 0-3 Few /LPF (0-3); URINE RBC 0-2 Rare /HPF (0-2); URINE WBC >25 Many /HPF (0-5)
[2020-07-25 16:32] LABS: ALBUMIN 3.5 g/dL (3.4-5.0); TOTAL BILIRUBIN 0.3 mg/dL (<0.1-1.0); TOTAL PROTEIN 7.8 g/dL (6.4-8.2)
[2020-07-25] MEDS ORDERED: CEPHALEXIN500 MG PO (17:11)
[2020-07-25 18:00] VITALS: BP 171/83
--- NOTE | 2020-07-26 13:58 | EKG ---
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1935 Requested By: lCinton Osuna Order Number: [id number] MD: Francisco Jaffe Measurements Intervals [place] Rate: 77 P: 78 NC: 153 QRS: -10 QRSD: 84 T: 78 QT: 372 QTc: 421 Interpretive Statements Sinus rhythm Probable LVH with secondary repol abnrm Anterior Q waves, possibly due to LVH Compared to ECG 04/26/2019 17:49:48 Left ventricular hypertrophy now present Q waves now present Electronically Signed On 07-26-2020 13:58:29 CDT by Francisco Jaffe [email or web address] <ELECTRONICALLY SIGNED> By: Francisco Jaffe MD, [facility] 07/26/20 1358 1619 1619 Francisco Jaffe MD, [facility] /EPI
== END 2020-07-25 18:00 | disposition home or self-care (01) ==
LOC: M.ERS 15:38
PROVIDERS: Emergency Medicine
DX: M25.512 Pain in left shoulder (principal); N39.0 Urinary tract infection, site not specified; I10 Essential (primary) hypertension; K21.9 Gastro-esophageal reflux disease without esophagitis; G62.9 Polyneuropathy, unspecified; Z88.0 Allergy status to penicillin; Z79.899 Other long term (current) drug therapy; Z90.49 Acquired absence of other specified parts of digestive tract; Z98.890 Other specified postprocedural states; W18.30XA Fall on same level, unspecified, initial encounter; Y93.89 Activity, other specified; Y92.098 Other place in other non-institutional residence as the place of occurrence of the external cause; Y99.9 Unspecified external cause status

== ENCOUNTER 2020-08-10 22:04 | Inpatient (IN) | payer MEDICARE, BC ==
[~2020-08-10] VITALS: Ht 165.1 cm; Wt 44.3 kg
[~2020-08-10 22:04] MED LIST changes: +CEPHALEXIN500 MG PO; +COLACE100 MG PO; +FAMOTIDINE 20 M20 MG PO; +IRON325 M1 PO; +LASIX 20 MG TAB20 MG PO; +METOPROLOL SUC100 MG PO
[2020-08-10 22:07] VITALS: BP 97/43
[2020-08-10 22:37] LABS: ABSOLUTE BASOPHILS 0.1 thou/uL (0.0-0.2); ABSOLUTE EOSINOPHILS 0.1 thou/uL (0.0-0.7); ABSOLUTE LYMPHOCYTES 1.2 thou/uL (0.8-5.3); BASOPHILS 0.9 %; EOSINOPHILS 1.1 %; HEMATOCRIT 30.5 % (37.0-47.0); HEMOGLOBIN 10.5 gm/dL (12.0-15.0); LYMPHOCYTES 11.6 %; MCH 32.5 pg (26.0-34.0); MCHC 34.4 g/dL (28.0-37.0); MCV 94.6 fL (80.0-100.0); NUCLEATED RBCS 0 /100WBC; PLATELET COUNT* 232 thou/uL (150-400); POLYS 76.4 %; RBC 3.23 mil/uL (4.20-5.00); RDW-CV 12.7 % (10.5-14.5); WBC 10.4 thou/uL (4.0-11.0)
[2020-08-10 23:08] LABS: CALCIUM 9.8 mg/dL (8.5-10.1); CREATININE 1.5 mg/dL (0.6-1.3); POTASSIUM 5.1 mmol/L (3.5-5.1)
[2020-08-10 23:13] LABS: ALBUMIN 3.5 g/dL (3.4-5.0); TOTAL PROTEIN 6.8 g/dL (6.4-8.2)
[2020-08-10 23:25] LABS: TOTAL BILIRUBIN 0.2 mg/dL (<0.1-1.0)
[2020-08-11 08:00] VITALS: BP 160/50
[2020-08-11 09:02] LABS: URINE BILIRUBIN NEGATIVE (Negative); URINE BLOOD 3+ (Negative); URINE CLARITY CLOUDY; URINE COLOR YELLOW; URINE GLUCOSE-RANDOM NEGATIVE (Negative); URINE KETONES NEGATIVE (Negative); URINE NITRITE-REFLEX POSITIVE (Negative); URINE PROTEIN 2+ (Negative); URINE UROBILINOGEN 0.2 E.U./dl (0.2-1.0)
[2020-08-11 09:03] LABS: BACTERIA-REFLEX >30 Many /HPF (None Seen); CASTS None Seen /LPF (None Seen); CRYSTALS None Seen /LPF (None Seen); MUCUS 0-3 Light strn/LPF (None Seen); SQUAMOUS 0-3 Few /LPF (0-3); TRANSITIONAL EPITHEL CELL 0-3 Few /LPF (None Seen); URINE LEUKOCYTES-REFLEX 2+ (Negative); URINE RBC None Seen /HPF (0-2); URINE WBC-REFLEX >25 Many /HPF (0-5); WBC CLUMPS Moderate (None Seen)
[2020-08-11 11:34] VITALS: BP 158/34
[2020-08-11 11:45] VITALS: BP 168/46
[2020-08-11 11:48] VITALS: BP 151/55
--- NOTE | 2020-08-11 14:23 | 2DMMODE ---
[place] [address] 2 D/M-MODE ECHOCARDIOGRAM Name: JALEEL EMERSON Room: [address] Antonino Sandhu#: [id number] Admission: 08/11/20 Attend Phys: Ed Morales Discharge: Date of : 35 Date of Service: 08/11/20 1423 Report #: [id number] THIS REPORT FOR: cc: Erick Mclaughlin MD, Dean L. MD Holkins,Francisco Meyer MD [facility] ~ APPROVED REPORT Study performed: 08/11/2020 10:37:16 EXAM: Comprehensive 2D, Doppler, and color-flow Echocardiogram Patient Location: In-Patient Room #: [facility] Status: routine BSA: 1.47 HR: 61 bpm BP: 114/53 mmHg Rhythm: NSR Other Information Study Quality: Good Indications Syncope 2D Dimensions IVSd: 9.39 (7-11mm) LVOT Diam: 19.53 (18-24mm) LVDd: 32.30 mm PWd: 10.64 (7-11mm) Ascending Ao: 30.26 (22-36mm) LVDs: 13.89 (25-40mm) Aortic Root: 29.43 mm Volumes Left Atrial Volume (Systole) LA ESV Index: 21.50 mL/m2 Aortic Valve AoV Peak Vipul.: 3.30 m/s AO Peak Gr.: 43.56 mmHg LVOT Max P.99 mmHg AO Mean Gr.: 26.86 mmHg LVOT Mean P.32 mmHg LVOT Max V: 1.41 m/s AO V2 VTI: 74.22 cm LVOT Mean V: 0.97 m/s VIANCA (VTI): 1.39 cm2 LVOT V1 VTI: 34.46 cm AI [place]: 2.45 m/s2 [place] [address] 2 D/M-MODE ECHOCARDIOGRAM Name: JALEEL EMERSON Elvira Room: [address] Phoebe#: [id number] Admission: 08/11/20 Attend Phys: Ed Morales Discharge: Date of : 35 Date of Service: 08/11/20 1423 Report #: [id number] AI PHT: 455.18 ms Mitral Valve E/A Ratio: 0.92 MV Decel. Time: 296.29 ms MV E Max Vipul.: 0.89 m/s MV PHT: 85.92 ms MVA (PHT): 2.56 cm2 TDI E/Lateral E': 17.80 E/Medial E': 14.83 Medial E' Vipul.: 0.06 m/s Lateral E' Vipul.: 0.05 m/s Pulmonary Valve PV Peak Vipul.: 0.83 m/s PV Peak Gr.: 2.76 mmHg Tricuspid Valve RAP Estimate: 5.00 mmHg TR Peak Gr.: 28.48 mmHg RVSP: 33.00 mmHg PA Pressure: 33.00 mmHg Left Ventricle The left ventricle is normal size. There is normal LV segmental wall motion. Moderate concentric left ventricular hypertrophy. Left ventricular systolic function is normal. The left ventricular ejection fraction is within the normal range. LVEF is 60-65%. Grade I - abnormal relaxation pattern. Right Ventricle The right ventricle is normal size. The right ventricular systolic function is normal. Atria The left atrium size is normal. The right atrium size is normal. Aortic Valve Moderate aortic valve sclerosis. Mild to moderate aortic regurgitation. Moderate aortic stenosis. Mitral Valve The mitral valve is normal in structure. Trace mitral regurgitation. No evidence of mitral valve stenosis[place] [address] 2 D/M-MODE ECHOCARDIOGRAM Name: JALEEL EMERSON Room: [address]#: [id number] Admission: 08/11/20 Attend Phys: Ed Morales Discharge: Date of : 35 Date of Service: 08/11/20 1423 Report #: [id number] The tricuspid valve is normal in structure. Mild tricuspid regurgitation. Mild pulmonary hypertension. Pulmonic Valve The pulmonary valve is normal in structure. There is no pulmonic valvular regurgitation. Great Vessels The aortic root is normal in size. IVC is normal in size and collapses >50% with inspiration. Pericardium There is no pericardial effusion. <Conclusion> The left ventricle is normal size. Moderate concentric left ventricular hypertrophy. Left ventricular systolic function is normal. The left ventricular ejection fraction is within the normal range. LVEF is 60-65%. Grade I - abnormal relaxation pattern. The right ventricle is normal size. The left atrium size is normal. Moderate aortic valve sclerosis. Mild to moderate aortic regurgitation. Moderate aortic stenosis. The mitral valve is normal in structure. The tricuspid valve is normal in structure. Mild tricuspid regurgitation. Mild pulmonary hypertension. IVC is normal in size and collapses >50% with inspiration. There is no pericardial effusion. There is normal LV segmental wall motion. <ELECTRONICALLY SIGNED> By: Francisco Jaffe MD, FACC 08/11/20 1423 1423 1423 Francisco Jaffe MD, FACC /INF
--- NOTE | 2020-08-11 14:35 | EKG ---
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[place] : 1935 Requested By: Kelly Conde Order Number: [id number] MD: Francisco Jaffe Measurements Intervals [place] Rate: 58 P: 72 ND: 165 QRS: -9 QRSD: 81 T: 62 QT: 404 QTc: 397 Interpretive Statements Sinus rhythm with sinus arrhythmia Probable left ventricular hypertrophy Compared to ECG 07/25/2020 16:19:04 Sinus arrhythmia is noted Q waves no longer present Electronically Signed On 08-11-2020 14:35:15 CDT by Francisco Jaffe [email or web address] <ELECTRONICALLY SIGNED> By: Francisco Jaffe MD, [facility] 08/11/20 1435 10 10 Francisco Jaffe MD, [facility] /EPI
[2020-08-11 16:00] VITALS: BP 162/40
[2020-08-11 19:30] VITALS: BP 158/49
[2020-08-12] VITALS: BP 126/38
[2020-08-12 04:00] VITALS: BP 163/54
[2020-08-12 05:43] LABS: HEMATOCRIT 31.4 % (37.0-47.0); HEMOGLOBIN 10.7 gm/dL (12.0-15.0); MCH 32.4 pg (26.0-34.0); MCHC 34.2 g/dL (28.0-37.0); MCV 94.7 fL (80.0-100.0); MPV 8.5 fl. (7.2-11.1); RBC 3.32 mil/uL (4.20-5.00); WBC 9.5 thou/uL (4.0-11.0)
[2020-08-12 06:18] LABS: ALBUMIN 2.9 g/dL (3.4-5.0); CALCIUM 8.9 mg/dL (8.5-10.1); MAGNESIUM 2.1 mg/dL (1.8-2.4); POTASSIUM 4.4 mmol/L (3.5-5.1); TOTAL BILIRUBIN 0.3 mg/dL (<0.1-1.0); TOTAL PROTEIN 6.9 g/dL (6.4-8.2)
[2020-08-12 08:00] VITALS: BP 164/70
[2020-08-12] MEDS ORDERED: PRESERVISION A1 EAC2 PO (09:29)
[2020-08-12 11:35] VITALS: BP 161/68
[2020-08-12 15:39] VITALS: BP 177/46
[2020-08-12 20:00] VITALS: BP 155/56
[2020-08-13] VITALS: BP 153/41
[2020-08-13 04:00] VITALS: BP 164/43
[2020-08-13 08:00] VITALS: BP 175/42
[2020-08-13 12:00] VITALS: BP 157/39
[2020-08-13 16:00] VITALS: BP 149/44
[2020-08-13 20:00] VITALS: BP 166/45
[2020-08-14] VITALS: BP 121/35
[2020-08-14 04:00] VITALS: BP 119/41
[2020-08-14 08:00] VITALS: BP 151/42
[2020-08-14 12:00] VITALS: BP 150/52
[2020-08-14 16:00] VITALS: BP 162/90
[2020-08-14 20:00] VITALS: BP 153/39
[2020-08-15] VITALS: BP 137/39
[2020-08-15 04:00] VITALS: BP 143/38
[2020-08-15 08:00] VITALS: BP 178/57
[2020-08-15 12:53] VITALS: BP 150/37
[2020-08-15] MEDS ORDERED: AUGMENTIN 875-1 EACH PO (16:44)
[2020-08-15 18:21] VITALS: BP 176/55
== END 2020-08-15 18:31 | DRG 682 ==
LOC: M.ERS 22:04 → M.TBA-ER 08-11 01:40 → M.2W 08-11 09:07
PROVIDERS: Emergency Medicine; Internal Medicine; ADMIT Internal Medicine; ATTEND Internal Medicine
PROC: 0HQ1XZZ Repair Face Skin, External Approach (ICD-10-PCS; principal; 2020-08-11)
DX: N17.0 Acute kidney failure with tubular necrosis (principal); E43 Unspecified severe protein-calorie malnutrition; N30.01 Acute cystitis with hematuria; Z68.1 Body mass index [BMI] 19.9 or less, adult; I12.9 Hypertensive chronic kidney disease with stage 1 through stage 4 chronic kidney disease, or unspecified chronic kidney disease; N18.30 Chronic kidney disease, stage 3 unspecified; K21.9 Gastro-esophageal reflux disease without esophagitis; M79.641 Pain in right hand; G62.9 Polyneuropathy, unspecified; E03.9 Hypothyroidism, unspecified; S01.81XA Laceration without foreign body of other part of head, initial encounter; W18.39XA Other fall on same level, initial encounter; Z20.822 Contact with and (suspected) exposure to COVID-19; Z98.49 Cataract extraction status, unspecified eye; Z90.49 Acquired absence of other specified parts of digestive tract; Z79.899 Other long term (current) drug therapy; Z88.0 Allergy status to penicillin; Y93.89 Activity, other specified; Y92.89 Other specified places as the place of occurrence of the external cause; Y99.8 Other external cause status

== ENCOUNTER 2020-09-07 03:21 | Emergency (ER) | payer MEDICARE, BC ==
[~2020-09-07] VITALS: Ht 154.9 cm; Wt 49.9 kg
[~2020-09-07 03:21] MED LIST changes: +AUGMENTIN 875-1 EACH PO
[2020-09-07 04:38] LABS: ABSOLUTE EOSINOPHILS 0.1 thou/uL (0.0-0.7); ABSOLUTE LYMPHOCYTES 0.8 thou/uL (0.8-5.3); ABSOLUTE MONOCYTES 0.6 thou/uL (0.0-1.2); ABSOLUTE NEUTROPHILS 6.6 thou/uL (1.6-8.1); BASOPHILS 0.2 %; EOSINOPHILS 0.8 %; HEMATOCRIT 32.6 % (37.0-47.0); HEMOGLOBIN 11.1 gm/dL (12.0-15.0); LYMPHOCYTES 9.5 %; MCH 32.1 pg (26.0-34.0); MCHC 34.1 g/dL (28.0-37.0); MCV 94.2 fL (80.0-100.0); MONOCYTES 7.6 %; MPV 7.9 fl. (7.2-11.1); NUCLEATED RBCS 0 /100WBC; PLATELET COUNT* 269 thou/uL (150-400); POLYS 81.9 %; RBC 3.46 mil/uL (4.20-5.00); RDW-CV 13.6 % (10.5-14.5)
[2020-09-07 04:50] LABS: CALCIUM 8.2 mg/dL (8.5-10.1); CREATININE 2.6 mg/dL (0.6-1.3); POTASSIUM 4.4 mmol/L (3.5-5.1)
[2020-09-07 04:54] LABS: ALBUMIN 3.6 g/dL (3.4-5.0); TOTAL BILIRUBIN 0.2 mg/dL (<0.1-1.0); TOTAL PROTEIN 7.6 g/dL (6.4-8.2)
[2020-09-07] MEDS ORDERED: MACROBID 100 M100 M1 PO (06:37)
[2020-09-07 07:14] LABS: URINE BILIRUBIN NEGATIVE (Negative); URINE BLOOD TRACE (Negative); URINE CLARITY CLEAR; URINE COLOR YELLOW; URINE GLUCOSE-RANDOM NEGATIVE (Negative); URINE KETONES NEGATIVE (Negative); URINE LEUKOCYTES-REFLEX NEGATIVE (Negative); URINE NITRITE-REFLEX NEGATIVE (Negative); URINE PROTEIN 1+ (Negative); URINE UROBILINOGEN 0.2 E.U./dl (0.2-1.0)
[2020-09-07 07:59] VITALS: BP 125/66
--- NOTE | 2020-09-07 09:27 | EKG ---
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1935 Requested By: Julieta Shetty Order Number: [id number] MD: Justin Owens Measurements Intervals [place] Rate: 67 P: 74 [place]: 163 QRS: 12 QRSD: 90 T: 60 QT: 370 QTc: 391 Interpretive Statements Sinus rhythm Atrial premature complexes in couplets Consider left ventricular hypertrophy Compared to ECG 08/10/2020 22:11:13 Atrial premature complex(es) now present Sinus arrhythmia no longer present Electronically Signed On 09-07-2020 9:27:41 CDT by Justin Owens [email or web address] <ELECTRONICALLY SIGNED> By: Justin Owens MD, [facility] 09/07/20 0927 7 7 Justin Owens MD, [facility] /EPI
== END 2020-09-07 08:56 | disposition home or self-care (01) ==
LOC: M.ERS 03:21
PROVIDERS: Personal Emergency Response Attendant
DX: R19.7 Diarrhea, unspecified (principal); R11.2 Nausea with vomiting, unspecified; R10.9 Unspecified abdominal pain; K21.9 Gastro-esophageal reflux disease without esophagitis; I10 Essential (primary) hypertension; Z20.822 Contact with and (suspected) exposure to COVID-19; Z88.0 Allergy status to penicillin; Z79.899 Other long term (current) drug therapy; Z90.49 Acquired absence of other specified parts of digestive tract; Z98.890 Other specified postprocedural states

== ENCOUNTER 2020-09-08 19:18 | Inpatient (IN) | payer MEDICARE, BC ==
[~2020-09-08] VITALS: Ht 154.9 cm; Wt 37.9 kg
[~2020-09-08 19:18] MED LIST changes: +MACROBID 100 M100 M1 PO
[2020-09-08 19:26] VITALS: BP 197/60
[2020-09-08 20:26] LABS: BE -13.6 mmol/L (-2 to +3); PCO2 34.2 mmHg (35.0-45.0); PO2 120.3 mmHg (75.0-100.0)
[2020-09-08 20:28] LABS: pH 7.207 (7.340-7.450)
[2020-09-08 20:35] LABS: CALCIUM 8.8 mg/dL (8.5-10.1); CREATININE 2.2 mg/dL (0.6-1.3); POTASSIUM 3.2 mmol/L (3.5-5.1)
[2020-09-08 20:39] LABS: ALBUMIN 3.8 g/dL (3.4-5.0); MAGNESIUM 2.7 mg/dL (1.8-2.4); TOTAL BILIRUBIN 0.2 mg/dL (<0.1-1.0); TOTAL PROTEIN 8.4 g/dL (6.4-8.2)
[2020-09-08 21:28] LABS: ABSOLUTE LYMPHOCYTES 1.1 thou/uL (0.8-5.3); ABSOLUTE MONOCYTES 0.8 thou/uL (0.0-1.2); EOSINOPHILS 0.1 %; HEMATOCRIT 36.2 % (37.0-47.0); HEMOGLOBIN 12.5 gm/dL (12.0-15.0); LYMPHOCYTES 10.5 %; MCH 32.5 pg (26.0-34.0); MCHC 34.4 g/dL (28.0-37.0); MCV 94.3 fL (80.0-100.0); MPV 8.2 fl. (7.2-11.1); NUCLEATED RBCS 0 /100WBC; PLATELET COUNT* 322 thou/uL (150-400); POLYS 82.4 %; RBC 3.84 mil/uL (4.20-5.00); RDW-CV 13.7 % (10.5-14.5); WBC 10.9 thou/uL (4.0-11.0)
[2020-09-08 22:48] LABS: URINE BILIRUBIN NEGATIVE (Negative); URINE BLOOD 1+ (Negative); URINE CLARITY CLEAR; URINE COLOR YELLOW; URINE GLUCOSE-RANDOM NEGATIVE (Negative); URINE KETONES TRACE (Negative); URINE LEUKOCYTES-REFLEX NEGATIVE (Negative); URINE NITRITE-REFLEX NEGATIVE (Negative); URINE PROTEIN TRACE (Negative); URINE UROBILINOGEN 0.2 E.U./dl (0.2-1.0)
[2020-09-08 22:53] LABS: SQUAMOUS 0-3 Few /LPF (0-3); URINE RBC 0-2 Rare /HPF (0-2); URINE WBC-REFLEX 0-5 Rare /HPF (0-5)
[2020-09-08 22:54] LABS: BACTERIA-REFLEX 1-9 Few /HPF (None Seen); CASTS None Seen /LPF (None Seen); CRYSTALS None Seen /LPF (None Seen)
[2020-09-09] VITALS (7 sets, daily range): BP systolic 157–187; BP diastolic 52–89
--- NOTE | 2020-09-09 09:44 | EKG ---
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1935 Requested By: Julieta Shetty Order Number: [id number] MD: Justin Owens Measurements Intervals [place] Rate: 92 P: 83 [place]: 152 QRS: 1 QRSD: 94 T: 147 QT: 269 QTc: 333 Interpretive Statements Sinus tachycardia Atrial premature complexes Left atrial enlargement LVH with secondary repolarization abnormality Abnormal inferior Q waves Compared to ECG 09/07/2020 03:28:01 Atrial abnormality now present Early repolarization now present Sinus rhythm no longer present Electronically Signed On 09-09-2020 9:43:48 CDT by Justin Owens [email or web address] <ELECTRONICALLY SIGNED> By: Justin Owens MD, FACC 09/09/20 0943 26 26 Justin Owens MD, [facility] /EPI
--- NOTE | 2020-09-09 16:18 | EKG ---
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1935 Requested By: Julieta Shetty Order Number: [id number] Reading MD: Justin Owens Measurements Intervals [place] Rate: 100 P: 103 [place]: 153 QRS: 4 QRSD: 106 T: 142 QT: 256 QTc: 330 Interpretive Statements Sinus tachycardia Multiple premature complexes, supraven Probable LVH with secondary repol abnrm Artifact in lead(s) I,II,aVR,aVL,aVF Compared to ECG 09/08/2020 19:27:12 rate has increased Electronically Signed On 09-09-2020 16:18:25 CDT by Justin Owens [email or web address] <ELECTRONICALLY SIGNED> By: Justin Owens MD, [facility] 09/09/20 1618 36 36 Justin Owens MD, [facility] /EPI
[2020-09-10 04:41] LABS: HEMATOCRIT 33.2 % (37.0-47.0); HEMOGLOBIN 11.2 gm/dL (12.0-15.0); MCH 32.1 pg (26.0-34.0); MCHC 33.8 g/dL (28.0-37.0); MCV 94.9 fL (80.0-100.0); MPV 7.6 fl. (7.2-11.1); RBC 3.5 mil/uL (4.20-5.00); RDW-CV 14.3 % (10.5-14.5); WBC 12.3 thou/uL (4.0-11.0)
[2020-09-10 04:59] LABS: ALBUMIN 2.9 g/dL (3.4-5.0); CALCIUM 7.9 mg/dL (8.5-10.1); MAGNESIUM 2.1 mg/dL (1.8-2.4); POTASSIUM 3.2 mmol/L (3.5-5.1); TOTAL BILIRUBIN 0.2 mg/dL (<0.1-1.0); TOTAL PROTEIN 6.4 g/dL (6.4-8.2)
[2020-09-10 05:50] LABS: CREATININE 1.2 mg/dL (0.6-1.3)
[2020-09-10 07:45] VITALS: BP 185/61
[2020-09-10 19:24] VITALS: BP 182/72
[2020-09-10 20:00] VITALS: BP 202/69
[2020-09-11 04:25] LABS: HEMOGLOBIN 12.1 gm/dL (12.0-15.0); MCH 31.4 pg (26.0-34.0); MCHC 33.7 g/dL (28.0-37.0); MCV 93.3 fL (80.0-100.0); MPV 7.5 fl. (7.2-11.1); RBC 3.86 mil/uL (4.20-5.00); RDW-CV 14.2 % (10.5-14.5); WBC 17.3 thou/uL (4.0-11.0)
[2020-09-11 05:01] LABS: ALBUMIN 2.9 g/dL (3.4-5.0); CALCIUM 8.2 mg/dL (8.5-10.1); CREATININE 1.1 mg/dL (0.6-1.3); POTASSIUM 3.5 mmol/L (3.5-5.1); TOTAL BILIRUBIN 0.3 mg/dL (<0.1-1.0); TOTAL PROTEIN 6.4 g/dL (6.4-8.2)
[2020-09-11 08:05] VITALS: BP 201/63
[2020-09-11 11:28] VITALS: BP 186/73
[2020-09-11 19:17] VITALS: BP 187/69
[2020-09-11 20:20] VITALS: BP 193/60
[2020-09-12 00:39] VITALS: BP 141/43
[2020-09-12 04:28] LABS: HEMATOCRIT 36.5 % (37.0-47.0); HEMOGLOBIN 12.3 gm/dL (12.0-15.0); MCH 31.6 pg (26.0-34.0); MCHC 33.7 g/dL (28.0-37.0); MCV 93.9 fL (80.0-100.0); MPV 8.2 fl. (7.2-11.1); RBC 3.89 mil/uL (4.20-5.00); RDW-CV 14.2 % (10.5-14.5); WBC 17.6 thou/uL (4.0-11.0)
[2020-09-12 04:56] LABS: ALBUMIN 2.8 g/dL (3.4-5.0); CALCIUM 8.5 mg/dL (8.5-10.1); POTASSIUM 3.6 mmol/L (3.5-5.1); TOTAL BILIRUBIN 0.3 mg/dL (<0.1-1.0); TOTAL PROTEIN 6.3 g/dL (6.4-8.2)
[2020-09-12 08:16] VITALS: BP 158/70
[2020-09-12 10:55] LABS: URINE BILIRUBIN NEGATIVE (Negative); URINE BLOOD 3+ (Negative); URINE CLARITY CLEAR; URINE COLOR YELLOW; URINE GLUCOSE-RANDOM NEGATIVE (Negative); URINE KETONES 1+ (Negative); URINE PROTEIN 2+ (Negative); URINE SPECIFIC GRAVITY 1.025 (1.005-1.030); URINE UROBILINOGEN 0.2 E.U./dl (0.2-1.0)
[2020-09-12 10:56] LABS: URINE LEUKOCYTES-REFLEX 2+ (Negative); URINE NITRITE-REFLEX POSITIVE (Negative)
[2020-09-12 10:59] LABS: CASTS None Seen /LPF (None Seen); CRYSTALS None Seen /LPF (None Seen); MUCUS 0-3 Light strn/LPF (None Seen); SQUAMOUS 0-3 Few /LPF (0-3); URINE WBC-REFLEX >25 Many /HPF (0-5)
[2020-09-12 16:00] VITALS: BP 158/56
[2020-09-12 21:45] VITALS: BP 180/59
[2020-09-13 00:12] VITALS: BP 139/57
[2020-09-13 04:02] VITALS: BP 150/61
[2020-09-13 04:23] LABS: HEMATOCRIT 36.8 % (37.0-47.0); HEMOGLOBIN 12.5 gm/dL (12.0-15.0); MCH 31.6 pg (26.0-34.0); MCV 92.9 fL (80.0-100.0); MPV 8.3 fl. (7.2-11.1); RBC 3.96 mil/uL (4.20-5.00); RDW-CV 13.7 % (10.5-14.5); WBC 18.9 thou/uL (4.0-11.0)
[2020-09-13 04:47] LABS: ALBUMIN 2.8 g/dL (3.4-5.0); CALCIUM 8.6 mg/dL (8.5-10.1); POTASSIUM 3.4 mmol/L (3.5-5.1); TOTAL BILIRUBIN 0.4 mg/dL (<0.1-1.0); TOTAL PROTEIN 6.3 g/dL (6.4-8.2)
[2020-09-13 09:00] VITALS: BP 178/58
[2020-09-14 00:58] VITALS: BP 110/41
[2020-09-14 04:47] VITALS: BP 119/59
[2020-09-14 04:50] LABS: ABSOLUTE EOSINOPHILS 0.2 thou/uL (0.0-0.7); ABSOLUTE LYMPHOCYTES 1.5 thou/uL (0.8-5.3); ABSOLUTE NEUTROPHILS 10.8 thou/uL (1.6-8.1); BASOPHILS 0.4 %; EOSINOPHILS 1.7 %; HEMATOCRIT 30.8 % (37.0-47.0); HEMOGLOBIN 10.6 gm/dL (12.0-15.0); MCH 31.9 pg (26.0-34.0); MCHC 34.4 g/dL (28.0-37.0); MCV 92.8 fL (80.0-100.0); MONOCYTES 7.5 %; MPV 8.5 fl. (7.2-11.1); NUCLEATED RBCS 0 /100WBC; PLATELET COUNT* 224 thou/uL (150-400); POLYS 79.4 %; RBC 3.32 mil/uL (4.20-5.00); RDW-CV 13.7 % (10.5-14.5); WBC 13.6 thou/uL (4.0-11.0)
[2020-09-14 05:11] LABS: PREALBUMIN 13.2 mg/dL (18.0-35.7)
[2020-09-14 05:18] LABS: ALBUMIN 2.4 g/dL (3.4-5.0); CALCIUM 8.4 mg/dL (8.5-10.1); POTASSIUM 4.1 mmol/L (3.5-5.1); TOTAL BILIRUBIN 0.3 mg/dL (<0.1-1.0); TOTAL PROTEIN 5.5 g/dL (6.4-8.2)
[2020-09-14 08:00] VITALS: BP 151/54
[2020-09-14 12:00] VITALS: BP 1545/96
[2020-09-14 16:00] VITALS: BP 147/94
[2020-09-14 20:00] VITALS: BP 156/55
[2020-09-15 08:00] VITALS: BP 107/48
[2020-09-15 11:58] LABS: ABSOLUTE BASOPHILS 0.1 thou/uL (0.0-0.2); ABSOLUTE EOSINOPHILS 0.2 thou/uL (0.0-0.7); ABSOLUTE LYMPHOCYTES 1.5 thou/uL (0.8-5.3); ABSOLUTE NEUTROPHILS 7.8 thou/uL (1.6-8.1); BASOPHILS 1.2 %; EOSINOPHILS 2.3 %; HEMATOCRIT 30.7 % (37.0-47.0); HEMOGLOBIN 10.6 gm/dL (12.0-15.0); MCH 32.3 pg (26.0-34.0); MCHC 34.6 g/dL (28.0-37.0); MCV 93.4 fL (80.0-100.0); MONOCYTES 9.3 %; NUCLEATED RBCS 0 /100WBC; PLATELET COUNT* 223 thou/uL (150-400); POLYS 73.2 %; RBC 3.28 mil/uL (4.20-5.00); RDW-CV 13.8 % (10.5-14.5); WBC 10.7 thou/uL (4.0-11.0)
[2020-09-15 12:00] VITALS: BP 166/95
[2020-09-15 12:08] LABS: ALBUMIN 2.5 g/dL (3.4-5.0); CALCIUM 8.4 mg/dL (8.5-10.1); CREATININE 0.9 mg/dL (0.6-1.3); POTASSIUM 4.4 mmol/L (3.5-5.1); TOTAL BILIRUBIN 0.2 mg/dL (<0.1-1.0); TOTAL PROTEIN 5.1 g/dL (6.4-8.2)
[2020-09-15 16:00] VITALS: BP 119/76; BP 140/84
[2020-09-15 20:30] VITALS: BP 123/45
[2020-09-16 03:59] VITALS: BP 110/42
[2020-09-16 04:37] LABS: ABSOLUTE BASOPHILS 0.1 thou/uL (0.0-0.2); ABSOLUTE EOSINOPHILS 0.3 thou/uL (0.0-0.7); ABSOLUTE LYMPHOCYTES 1.5 thou/uL (0.8-5.3); ABSOLUTE MONOCYTES 1.1 thou/uL (0.0-1.2); BASOPHILS 0.6 %; EOSINOPHILS 2.9 %; HEMATOCRIT 30.3 % (37.0-47.0); HEMOGLOBIN 10.5 gm/dL (12.0-15.0); LYMPHOCYTES 15.3 %; MCH 32.4 pg (26.0-34.0); MCHC 34.8 g/dL (28.0-37.0); MCV 92.9 fL (80.0-100.0); MONOCYTES 11.1 %; MPV 8.5 fl. (7.2-11.1); NUCLEATED RBCS 0 /100WBC; PLATELET COUNT* 222 thou/uL (150-400); POLYS 70.1 %; RBC 3.26 mil/uL (4.20-5.00); RDW-CV 13.8 % (10.5-14.5)
[2020-09-16 05:18] LABS: PREALBUMIN 13.6 mg/dL (18.0-35.7)
[2020-09-16 05:28] LABS: ALBUMIN 2.3 g/dL (3.4-5.0); CALCIUM 8.7 mg/dL (8.5-10.1); CREATININE 0.9 mg/dL (0.6-1.3); POTASSIUM 4.4 mmol/L (3.5-5.1); TOTAL BILIRUBIN 0.3 mg/dL (<0.1-1.0); TOTAL PROTEIN 5.5 g/dL (6.4-8.2)
[2020-09-16] MEDS ORDERED: VANCOMYCIN HCL125 MG PO (07:45)
[2020-09-16 08:30] VITALS: BP 129/47
[2020-09-16 12:00] VITALS: BP 144/47
[2020-09-16 20:00] VITALS: BP 134/40
[2020-09-17 08:00] VITALS: BP 109/48
[2020-09-17 09:00] VITALS: BP 109/48
== END 2020-09-17 18:35 | DRG 371 ==
LOC: M.ERS 19:18 → M.TBA-ER 20:50 → M.2W 20:50 → M.3W 09-16 15:39
PROVIDERS: Internal Medicine; Personal Emergency Response Attendant; ADMIT Internal Medicine; ATTEND Internal Medicine
DX: A04.71 Enterocolitis due to Clostridium difficile, recurrent (principal); N17.0 Acute kidney failure with tubular necrosis; R65.11 Systemic inflammatory response syndrome (SIRS) of non-infectious origin with acute organ dysfunction; E87.2 Acidosis; E46 Unspecified protein-calorie malnutrition; Z68.1 Body mass index [BMI] 19.9 or less, adult; E86.0 Dehydration; F03.90 Unspecified dementia, unspecified severity, without behavioral disturbance, psychotic disturbance, mood disturbance, and anxiety; I10 Essential (primary) hypertension; E03.9 Hypothyroidism, unspecified; G62.9 Polyneuropathy, unspecified; K21.9 Gastro-esophageal reflux disease without esophagitis; R91.1 Solitary pulmonary nodule; Z20.822 Contact with and (suspected) exposure to COVID-19; Z90.49 Acquired absence of other specified parts of digestive tract; Z98.49 Cataract extraction status, unspecified eye; Z79.899 Other long term (current) drug therapy; Z88.0 Allergy status to penicillin